=== PATIENT | male | born 1960 | race Caucasian/White ===

== ENCOUNTER 2018-08-27 02:38 | Observation (INO) ==
[2018-08-27] MEDS ORDERED: Tdap (Boostrix) Vaccine 0.5 ML SYRINGE IM ONE (03:05)
[2018-08-27] MEDS ORDERED: Lidocaine/EPI 1:100k 1% 30 ML VIAL INFILT ONE (03:05)
--- NOTE | 2018-08-27 03:09 | Emergency Department Note ---
Disposition Clinical Impression: Dog bite Qualifiers: Encounter type: initial encounter Qualified Code(s): W54.0XXA - Bitten by dog, initial encounter Disposition: Admitted As Inpatient Condition: Good Animal Bite HPI - General Chief Complaint: ED Animal Bite Stated Complaint: dog bite to face Time Seen by Provider: 08/27/18 02:40 Source: patient, EMS Mode of arrival: private vehicle Limitations: no limitations Nursing Notes Reviewed: Yes Vital Signs Reviewed: Yes - History of Present Illness HPI Narrative: 58-year-old male presents emergency department for evaluation of a dog bite. Patient states he owns a pit bull, the dog was laying beside him and he went to sit up THE DOG ATTACKED HIS FACE AND BITING HIM. HE HAS MULTIPLE BITES TO HIS FACE AND ONE BITE TO HIS LEG. PATIENT STATES HE IS UNSURE WHY THE DOG ATTACKED HIM THE DOG STOPPED ON ITS OWN WHEN HIS ENTERS ROOM. PATIENT DENIES VISUAL DISTURBANCE, PAIN. HE STATES HE CAME TO GET THE WOUNDS LOOKED AT. HE STATES HE HAS NOT SEEN A PROVIDER NEVER 40 YEARS AND HAS NEVER HAD A TETANUS SHOT. Patient says dog Vaccinations are up-to-date. Patient is a chronic long-term smoker of at least one pack per day. Pt Subjective Complaint: animal bite Onset (ago): hour(s) Animal: dog Description of Animal: household pet Mechanism: bite, scratch Context: unprovoked Associated symptoms: Reports: none - Related Data Patient Tetanus UTD: No Allergies Allergy/AdvReac Type Severity Reaction Status Date / Time No Known Allergies Allergy Verified 08/27/18 02:42 All systems ED: reviewed and negative except as stated. Review of Systems: As Per HPI Past Medical History - Past Medical History Attestation: Yes The following information was validated with the patient. Source: patient Medical history: Reports: no medical history Psychiatric history: Reports: no psych history - Social History Smoking Status: Current every day smoker Smokeless Tobacco Status: No Alcohol use: Reports: heavy, recent Drug use: Reports: marijuana Physical Exam - General Limitations: no limitations General appearance: alert, in no apparent distress - Expanded Head Exam Head exam physicial: Present: laceration, abrasion 1 - 2 cm well approximated shallow laceration, no active bleeding 2 - 4 cm abrasion, no active bleeding 3 - Laceration through the nare at the base, minimal bleeding 4 - Laceration through and through the nare, no active bleeding 5 - Laceration to her lip line, laceration is half the depth of the entire lip , no active bleeding, no foreign body. - Eye Eye exam: Present: normal appearance, PERRL, EOMI - ENT ENT exam: mucous membranes moist - Neck Neck exam: Present: normal inspection, full ROM, trachea midline - Expanded Lower Extremity Exam 1 - Small puncture wound, patient states was a dog bite. Course Course Narrative: Pleasant male in no acute distress. Patient noted with dried blood to know, mouth, above his eye. Patient denying visual disturbances. He is alert and oriented. Initially, patient did not want closure or evaluation of any of his wounds, I was able to speak to him and discuss closing wound on the nose and lip , patient states he did not want the wound to his eye mask with. He states he wants returning to be closed and is to go home. Medical student and the room was cleansing the wounds, after cleansing noticed that the tip of nose is mostly amputated, patel in color. Wound to lip is deeper than originally thought and considerably larger, through the vermilion border almost a through and through. Wound to left superior orbit with exposure to palpebrae muscle. Extensiveness of injuries requiring ENT consultation. We will start Ancef, ciprofloxacin Spoke with ENT doctor Jayson, we will need to close in the OR, plan for admission to the hospital under their services. Will admit to hospital at this time. Patient is agreeable plan of care. Vital signs are stable, afebrile. Safe for discharge. Orders for admission discussed with Dr. Tyler, we will implement. Vital Signs Temperature 98.2 F 08/27/18 02:42 Pulse Rate 94 08/27/18 02:42 Respiratory Rate 16 08/27/18 02:42 Blood Pressure 147/93 08/27/18 02:42 O2 Sat by Pulse Oximetry 96 08/27/18 02:42 Temperature 98.2 F 08/27/18 02:42 Pulse Rate 87 08/27/18 04:39 Respiratory Rate 16 08/27/18 04:39 Blood Pressure 120/79 08/27/18 04:39 O2 Sat by Pulse Oximetry 96 08/27/18 04:39 Oxygen Delivery Oxygen Delivery Room Air Attestation Statement - Attestation Attestation: I examined this patient and my medical decision-making was reviewed with the Resident Physician. I agree with the documented findings, disposition and treatment plan as described except to the extent set forth below. Dog bite to the face. There is significant irritation of the anterior nasal cartilage as well as through and through laceration of the per million border in the muscle of the lip as well as a linear laceration through the levator palpebra muscle of the left eyelid. Spoke with ENT facial plastic surgery and we will proceed with admission hospital for further management. Wet to dry dressings placed prior to operative intervention for primary closure.
[2018-08-27] MEDS ORDERED: Nicotine 21 MG PATCH.TD24 TD ONE (03:46)
[2018-08-27] MEDS ORDERED: ceFAZolin 1,000 MG in Water for inj. (sterile) 20 ML 10 ML IVPB ONE ×2 (04:05→05:00)
[2018-08-27] MEDS ORDERED: 0.9 % Sodium Chloride 1,000 ML IVC SCH ×2 (07:00→20:15)
[2018-08-27 07:15] LABS: Basophils # 0.1 K/mcL (0.0-0.2); Basophils % 1.4 %; Eosinophils # 0.1 K/mcL (0.0-0.6); Eosinophils % 2.4 %; Hematocrit 34.8 % (37.5-50.1); Hemoglobin 10.9 g/dL (12.9-16.9); Immature Granulocytes % 0.2 % (0-4); Lymphocytes % 24.9 %; Mean Corpuscular HGB Conc 31.3 g/dL (31.6-35.5); Mean Corpuscular Hemoglobin 28.8 pg (28.0-33.3); Mean Corpuscular Volume 91.8 fL (83.0-100.0); Mean Platelet Volume 9.3 fL (9.4-12.4); Monocytes # 0.6 K/mcL (0.0-1.3); Monocytes % 13.5 %; Neutrophils # 2.4 K/mcL (1.6-8.9); Platelet Count 188 K/mcL (140-400); Red Blood Count 3.79 M/mcL (4.19-5.50); Red Cell Distribution Width 15.9 % (11.5-14.5); Segmented Neutrophils % 57.6 %
[2018-08-27 07:26] LABS: INR 1.3; Prothrombin Time 14.4 Seconds (9.4-12.1)
[2018-08-27 07:37] LABS: BUN/Creatinine Ratio 14 (6-26); Blood Urea Nitrogen 6 mg/dL (8-23); Calcium 8.9 mg/dL (8.6-10.3); Carbon Dioxide 20 mEq/L (23-29); Chloride 107 mEq/L (98-107); Glucose 88 mg/dL (70-105); Osmolality,Calculated 277 (280-300); Potassium 3.7 mEq/L (3.5-5.1); Sodium 135 mEq/L (136-145); eGFR For Non-African Americans > 60 (> 60)
--- NOTE | 2018-08-27 09:01 | ENT - Consult Note ---
Date of Encounter: 08/27/18 Time of Encounter: 09:00 History of Present Illness Consult date: 08/27/18 Reason for ENT Consult: other (Multiple Facial lacerations after Dog Bite To face) Requesting physician: Jeffy Vidales Past Med Surg Social Fam HX - Past Medical History Medical history: no medical history Psychiatric history: no psych history - Social History Smoking Status: Current every day smoker Packs per day: 1 Smokeless Tobacco Status: No Alcohol use: heavy, recent Drug use: marijuana - Family History Father Adopted: No Age: 88 Living Status: Still Living Hx Family Cardiac Disorders: Yes (stents, [place]) Hx Family Respiratory Disorders: No Hx Family Cancer: No Hx Family GI Disorders: No Hx Family Genitourinary Disorders: No Hx Family Endocrine Disorder: No Hx Family Musculoskeletal Disorders: Yes (arthritis) Hx Family Neuromuscular Disorders: No Hx Family Neurologic Disorders: No Hx Family HEENT Disorders: No Hx Family Autoimmune Disorders: No Hx Family Reproductive Disorders: No Hx Family Psychosocial Disorders: No Hx Family Medical Disorders: No Mother Adopted: No Living Status: Age at : 62 Cause of : diabetic issues Hx Family Cardiac Disorders: No Hx Family Respiratory Disorders: No Hx Family Cancer: No Hx Family GI Disorders: No Hx Family Genitourinary Disorders: No Hx Family Endocrine Disorder: Yes Hx Family Musculoskeletal Disorders: No Hx Family Neuromuscular Disorders: No Hx Family Neurologic Disorders: No Hx Family HEENT Disorders: No Hx Family Autoimmune Disorders: No Hx Family Reproductive Disorders: No Hx Family Psychosocial Disorders: No Hx Family Medical Disorders: No Medications and Allergies 3 Allergy/AdvReac Type Severity Reaction Status Date / Time No Known Allergies Allergy Verified 08/27/18 02:42 ENT Exam Initial Vital Signs Temp Pulse Resp BP Pulse Ox 98.2 F 94 16 147/93 96 08/27/18 02:42 08/27/18 02:42 08/27/18 02:42 08/27/18 02:42 08/27/18 02:42 Exam Initial Vital Signs Temp Pulse Resp BP Pulse Ox 98.2 F 94 16 147/93 96 08/27/18 02:42 08/27/18 02:42 08/27/18 02:42 08/27/18 02:42 08/27/18 02:42 Results - Labs 08/27/18 06:59 08/27/18 07:04 Abnormal lab results WBC 4.1 K/mcL (4.3-11.1) L 08/27/18 06:59 RBC 3.79 M/mcL (4.19-5.50) L 08/27/18 06:59 Hgb 10.9 g/dL (12.9-16.9) L 08/27/18 06:59 Hct 34.8 % (37.5-50.1) L 08/27/18 06:59 MCHC 31.3 g/dL (31.6-35.5) L 08/27/18 06:59 RDW 15.9 % (11.5-14.5) H 08/27/18 06:59 MPV 9.3 fL (9.4-12.4) L 08/27/18 06:59 PT 14.4 Seconds (9.4-12.1) H 08/27/18 07:04 Sodium 135 mEq/L (136-145) L 08/27/18 07:04 Carbon Dioxide 20 mEq/L (23-29) L 08/27/18 07:04 BUN 6 mg/dL (8-23) L 08/27/18 07:04 Creatinine 0.43 mg/dL (0.70-1.30) L 08/27/18 07:04 Calculated Osmolality 277 (280-300) L 08/27/18 07:04 Diabetes panel 08/27/18 Range/Units 07:04 Sodium 135 L (136-145) mEq/L Potassium 3.7 (3.5-5.1) mEq/L Chloride 107 (98-107) mEq/L Carbon Dioxide 20 L (23-29) mEq/L BUN 6 L (8-23) mg/dL Creatinine 0.43 L (0.70-1.30) mg/dL Glucose 88 (70-105) mg/dL Calcium 8.9 (8.6-10.3) mg/dL Calcium panel 08/27/18 Range/Units 07:04 Calcium 8.9 (8.6-10.3) mg/dL Pituitary panel 08/27/18 Range/Units 07:04 Sodium 135 L (136-145) mEq/L Potassium 3.7 (3.5-5.1) mEq/L Chloride 107 (98-107) mEq/L Carbon Dioxide 20 L (23-29) mEq/L BUN 6 L (8-23) mg/dL Creatinine 0.43 L (0.70-1.30) mg/dL Glucose 88 (70-105) mg/dL Calcium 8.9 (8.6-10.3) mg/dL Adrenal panel 08/27/18 Range/Units 07:04 Sodium 135 L (136-145) mEq/L Potassium 3.7 (3.5-5.1) mEq/L Chloride 107 (98-107) mEq/L Carbon Dioxide 20 L (23-29) mEq/L BUN 6 L (8-23) mg/dL Creatinine 0.43 L (0.70-1.30) mg/dL Glucose 88 (70-105) mg/dL Calcium 8.9 (8.6-10.3) mg/dL All other labs normal. Consult Discharge Plan - Plan Referrals: NONE,PCP [Primary Care Provider] -
--- NOTE | 2018-08-27 09:25 | ENT - History & Physical ---
Date of Encounter: 08/28/18 Time of Encounter: 09:24 Assessment and Plan (1) Laceration of upper lip with complication Current Visit: Yes Status: Acute --Patient received a tetanus booster in the emergency department --Pain control after sustaining trauma from the dog bite --We will place on IV antibiotics prior to and after surgical intervention. --Preoperative labs were obtained, this included CBC BMP and coagulations studies. --Patient is to be nothing by mouth prior to surgery --We will begin patient on IV fluids --I discussed with the patient that we will close each laceration individually. I discussed with the patient that the laceration on his nose may have resultant defect due to skin necrosis that may be corrected at a later date. Stress other major risks and complications with the patient and his family member and ring consent was obtained. The assessment and plan as outlined above was discussed with the patient and/or family members who expressed understanding and agreement. All questions were answered. Qualifiers: Encounter type: initial encounter Qualified Code(s): S01.511A - Laceration without foreign body of lip, initial encounter (2) Eyelid laceration, left Current Visit: Yes Status: Acute As noted above Qualifiers: Encounter type: initial encounter Qualified Code(s): S01.112A - Laceration without foreign body of left eyelid and periocular area, initial encounter (3) Nasal laceration Current Visit: Yes Status: Acute As noted above Qualifiers: Encounter type: initial encounter Qualified Code(s): S01.21XA - Laceration without foreign body of nose, initial encounter (4) Dog bite Current Visit: Yes Status: Acute As noted above in plan for others. The assessment and plan as outlined above was discussed with the patient and/or family members who expressed understanding and agreement. All questions were answered. Qualifiers: Encounter type: initial encounter Qualified Code(s): W54.0XXA - Bitten by dog, initial encounter History of Present Illness Chief complaint: Dog Bite HPI: Mr. Sandra is a 58 year old male who presented to the emergency department after being attacked by his dog of 11 years. The patient states that his dogs immunizations are up to date including rabies. The patient has not had a tetanus shot. He was given tetanus shot in the emergency department. The patient states that the bleeding has subsided. The patient is complaining of some nasal congestion as well as pain. The patient has no change in his vision. The patient has no the paresthesias of the face. Past Med Surg Social Fam HX - Past Medical History Attestation: Yes The following information was validated with the patient. Source: patient Medical history: no medical history Psychiatric history: no psych history - Past Surgical History Surgical History: no surgical history - Social History Smoking Status: Current every day smoker Packs per day: 1 Smokeless Tobacco Status: No Alcohol use: heavy, recent Drug use: marijuana - Family History Father Adopted: No Age: 88 Living Status: Still Living Hx Family Cardiac Disorders: Yes (stents, [place]) Hx Family Respiratory Disorders: No Hx Family Cancer: No Hx Family GI Disorders: No Hx Family Genitourinary Disorders: No Hx Family Endocrine Disorder: No Hx Family Musculoskeletal Disorders: Yes (arthritis) Hx Family Neuromuscular Disorders: No Hx Family Neurologic Disorders: No Hx Family HEENT Disorders: No Hx Family Autoimmune Disorders: No Hx Family Reproductive Disorders: No Hx Family Psychosocial Disorders: No Hx Family Medical Disorders: No Mother Adopted: No Living Status: Age at : 62 Cause of : diabetic issues Hx Family Cardiac Disorders: No Hx Family Respiratory Disorders: No Hx Family Cancer: No Hx Family GI Disorders: No Hx Family Genitourinary Disorders: No Hx Family Endocrine Disorder: Yes Hx Family Musculoskeletal Disorders: No Hx Family Neuromuscular Disorders: No Hx Family Neurologic Disorders: No Hx Family HEENT Disorders: No Hx Family Autoimmune Disorders: No Hx Family Reproductive Disorders: No Hx Family Psychosocial Disorders: No Hx Family Medical Disorders: No Medications and Allergies Amoxicillin/Clavulanate [Augmentin] 875 mg PO BID 10 Days #20 tablet 08/28/18 [ Rx] Mupirocin [Bactroban Oint] 1 appl TP BID 10 Days #1 tube 08/28/18 [Rx] 3 Allergy/AdvReac Type Severity Reaction Status Date / Time No Known Allergies Allergy Verified 08/27/18 02:42 ENT - ROS - Constitutional Constitutional ROS: no daytime sleepiness, no fever(s), no headache(s), no lethargy, no snoring, no stops breathing during sleep - EENT Nose, mouth and throat: mouth lesions (Laceration of upper lip), no abnormal hearing, no bleeding gums, no change in voice, no dental pain, no disequilibrium , no dizziness, no dry mouth, no dysphagia, no epistaxis, no facial pain, no halitosis, no headache(s), no hoarseness, no lip swelling, no mouth pain, no nasal congestion, no nasal discharge, no nasal obstruction, no nasal trauma, no neck mass, no neck pain, no nose pain, no odynophagia, no post-nasal drip, no sinus pain, no sinus pressure, no sore throat, no throat swelling, no tongue swelling, no vertigo - Cardiovascular Cardiovascular ROS IM: no chest pain, no chest pain at rest, no chest pain with activity, no dyspnea, no edema, no irregular heart rhythm, no radiating jaw, neck or arm pain, no lightheadedness, no orthopnea, no paroxysmal nocturnal dyspnea, no syncope - Respiratory no cough, no dyspnea, no hemoptysis, no dyspnea on exertion, no wheezing, no snoring, no stridor, no pain on inspiration, no chest congestion, no excessive phlegm production, no change in phlegm color, no pain with cough - Gastrointestinal Gastrointestinal: no coffee ground emesis, no constipation, no diarrhea, no dyspepsia, no dysphagia, no heartburn, no nausea, no odynophagia, no vomiting - Genitourinary Genitourinary ROS: no difficulty urinating, no dysuria, no urinary frequency, no urinary incontinence, no urinary urgency - Musculoskeletal Musculoskeletal ROS: no abnormal gait, no muscle weakness, no myalgias, no neck pain, no numbness, no stiffness, no tingling - Integumentary Integumentary: no acne, no bleeding lesions, no change in hair, no change in nails, no change in pigmentation, no changing lesions, no erythema, no furuncle , no lesions, no new lesions, no non-healing lesions, no pruritus, no rash, no skin ulcer, no sores - Neurological Neurological ROS: no abnormal gait, no abnormal hearing, no abnormal speech, no disequilibrium, no dizziness, no focal weakness, no frequent falls, no headache( s), no lack of coordination, no numbness, no paresthesias, no restless legs, no syncope, no tingling, no tremor(s), no vertigo, no weakness - Psychiatric Psychiatric general: no abnormal sleep pattern, no anxiety, no auditory hallucinations - Endocrine Endocrine: no cold intolerance, no deeping of the voice, no excessive sweating, no fatigue, no flushing, no heat intolerance, no palpitations, no polydipsia, no polyphagia, no polyuria - Hematologic/Lymphatic no easy bleeding, no easy bruising, no lymphadenopathy - Allergic/Immunologic no tongue swelling, no throat swelling, no itchy eyes, no seasonal rhinorrhea, no uticaria, no wheezing, no GI upset with certain foods, no lip swelling ENT Exam Initial Vital Signs Temp Pulse Resp BP Pulse Ox 98.2 F 94 16 147/93 96 08/27/18 02:42 08/27/18 02:42 08/27/18 02:42 08/27/18 02:42 08/27/18 02:42 - General physical appearance well developed, well nourished, no distress, moderate pain - Eyes Eyes: left Eye exam: lesions (Upper eyelid laceration noted approximately 4 cm long. Discussed down to the level of the orbicularis and oculi) - ENT Other (There is a left upper lip laceration that is approximately 2 cm in length and involves the skin, subcutaneous tissue, musculature of the lip, and the oral mucosa is intact. There is also a complex laceration of the left nasal alar and the nasal tip. It appears that the ala is partially avulsed. It does not appear that the patient has any mucosal lacerations within the nasal cavity.) - Neck no masses, no bruits, trachea midline, no lymphadectomy, no venous distension - Respiratory normal expansion, normal respiratory effort, clear to percussion - Abdomen Abdomen: soft, non tender - Integumentary no abnormal pigmentation - Neurologic CN 2-12 grossly intact - Musculoskeletal normal gait, normal posture - Psychiatric oriented to time, oriented to person, oriented to place, speech is normal, memory intact Results - Labs 08/27/18 06:59 08/27/18 07:04 Abnormal lab results WBC 4.1 K/mcL (4.3-11.1) L 08/27/18 06:59 RBC 3.79 M/mcL (4.19-5.50) L 08/27/18 06:59 Hgb 10.9 g/dL (12.9-16.9) L 08/27/18 06:59 Hct 34.8 % (37.5-50.1) L 08/27/18 06:59 MCHC 31.3 g/dL (31.6-35.5) L 08/27/18 06:59 RDW 15.9 % (11.5-14.5) H 08/27/18 06:59 MPV 9.3 fL (9.4-12.4) L 08/27/18 06:59 PT 14.4 Seconds (9.4-12.1) H 08/27/18 07:04 Sodium 135 mEq/L (136-145) L 08/27/18 07:04 Carbon Dioxide 20 mEq/L (23-29) L 08/27/18 07:04 BUN 6 mg/dL (8-23) L 08/27/18 07:04 Creatinine 0.43 mg/dL (0.70-1.30) L 08/27/18 07:04 Calculated Osmolality 277 (280-300) L 08/27/18 07:04 Diabetes panel 08/27/18 Range/Units 07:04 Sodium 135 L (136-145) mEq/L Potassium 3.7 (3.5-5.1) mEq/L Chloride 107 (98-107) mEq/L Carbon Dioxide 20 L (23-29) mEq/L BUN 6 L (8-23) mg/dL Creatinine 0.43 L (0.70-1.30) mg/dL Glucose 88 (70-105) mg/dL Calcium 8.9 (8.6-10.3) mg/dL Calcium panel 08/27/18 Range/Units 07:04 Calcium 8.9 (8.6-10.3) mg/dL Pituitary panel 08/27/18 Range/Units 07:04 Sodium 135 L (136-145) mEq/L Potassium 3.7 (3.5-5.1) mEq/L Chloride 107 (98-107) mEq/L Carbon Dioxide 20 L (23-29) mEq/L BUN 6 L (8-23) mg/dL Creatinine 0.43 L (0.70-1.30) mg/dL Glucose 88 (70-105) mg/dL Calcium 8.9 (8.6-10.3) mg/dL Adrenal panel 08/27/18 Range/Units 07:04 Sodium 135 L (136-145) mEq/L Potassium 3.7 (3.5-5.1) mEq/L Chloride 107 (98-107) mEq/L Carbon Dioxide 20 L (23-29) mEq/L BUN 6 L (8-23) mg/dL Creatinine 0.43 L (0.70-1.30) mg/dL Glucose 88 (70-105) mg/dL Calcium 8.9 (8.6-10.3) mg/dL All other labs normal. - VTE Reasons for not Prescribing Prophylaxis: Treatment not Indicated - Low risk for VTE Documentation of Mechanical Device: Intermittent pneumatic compression device Deep Vein Thrombosis/Pulmonary Embolism Present on Admission: No
[2018-08-27] MEDS ORDERED: *HR* HYDROcodone/Acet 5/325 mg TABLET PO PRN (10:52)
[2018-08-27] MEDS ORDERED: Ondansetron 4 MG/2 ML VIAL ONE (14:26)
[2018-08-27] MEDS ORDERED: Dexamethasone 4 MG/ML VIAL ONE (14:26)
[2018-08-27] MEDS ORDERED: Lidocaine -MPF 4% 5 ML AMPUL ONE (14:26)
[2018-08-27] MEDS ORDERED: *HR* Propofol 200 MG/20 ML VIAL IVP ONE (14:26)
[2018-08-27] MEDS ORDERED: *HR* Succinylcholine 200 MG/10 ML VIAL IVP ONE (14:26)
[2018-08-27] MEDS ORDERED: *HR* Midazolam HCl 2 MG/2 ML VIAL ONE (14:26)
[2018-08-27] MEDS ORDERED: *HR* FentaNYL (PF) 100 MCG/2 ML VIAL ONE (14:26)
[2018-08-27] MEDS ORDERED: Lidocaine -MPF 2% 2 ML VIAL ONE (14:26)
--- NOTE | 2018-08-27 14:39 | Anesthesia Evaluation PreOp ---
Date of Encounter: 08/27/18 Time of Encounter: 14:37 - Past History Planned Operation: Closure eyelid, nasal, and lip laceration Cardiac History: Denies any Significant Hx Pulmonary History: Smoker DIRECTOR [employer] SERVICES History: Denies Any Significant HX Other Medical History: Denies Any Significant HX Anesthesia History: No Prior Anesthetic Complications, Past Anesthesia (none) Alcohol Use: none, heavy, recent Drug use: none, marijuana Medications and Allergies No Known Home Drugs 08/27/18 [History] 3 Allergy/AdvReac Type Severity Reaction Status Date / Time No Known Allergies Allergy Verified 08/27/18 02:42 - Meds/Allergy Pre-op Review Medications Reviewed: Yes Allergies Reviewed: No Beta Blockers on Current Med List: No Anesthesia Results - Labs 08/27/18 06:59 08/27/18 07:04 Anesthesia Exam O2 Sat Height 1.83 m Height 1.83 m Weight 90.322 kg Weight 90.718 kg O2 Sat by Pulse Oximetry 95 O2 Sat by Pulse Oximetry 94 O2 Sat by Pulse Oximetry 96 O2 Sat by Pulse Oximetry 94 O2 Sat by Pulse Oximetry 96 Vital Signs Temp Pulse Resp BP Pulse Ox 98.2 F 94 16 147/93 96 08/27/18 02:42 08/27/18 02:42 08/27/18 02:42 08/27/18 02:42 08/27/18 02:42 NPO (# of Hours): > 8 hrs Pain Scale: 0 Pain Scale Used: Numeric (1 - 10) - HEENT Pupil (Motor): Pupils equal, EOMI Mallampati: II Teeth: Normal Oral Opening: Greater than 3 - [employer]OR OF [employer] SERVICES LOC: Oriented [employer] SERVICES Motor: Normal RUE, Normal LUE, Normal RLE, Normal LLE, Normal Face [employer] SERVICES Sensory: Normal: RUE, LUE, RLE, LLE, Face - Cardiac Rhythm: Regular Murmur: None JVD: No Carotid Bruit: No - Pulmonary Breath Sounds: bilateral Clear Respiratory Effort: Symmetrical Anesthesia Assess/Plan ASA Score: 3 Modified Hima Scale for Level of Consciousness: Cooperative, oriented, and tranquil Anesthetic Plan: General Autologous Blood: Yes Monitoring Plan: Standard Monitors Recovery Plan: PACU
[2018-08-27] MEDS ORDERED: Lidocaine/EPI 1:100k 1% 50 ML VIAL ONE (15:15)
[2018-08-27] MEDS ORDERED: Albuterol 2.5 MG/3 ML NEBULIZER IH ONE (15:26)
[2018-08-27] MEDS ORDERED: ceFAZolin 2,000 MG in Water for inj. (sterile) 20 ML 10 ML IVP ONE (16:40)
[2018-08-27] MEDS ORDERED: Albuterol 2.5 MG/3 ML NEBULIZER IH PRN (16:55)
[2018-08-27] MEDS ORDERED: *HR* Morphine 2 MG/ML SYRINGE IVP PRN (16:55)
[2018-08-27] MEDS ORDERED: *HR* OxyCODONE Immed Rel 5 MG TABLET PO PRN (16:55)
[2018-08-27] MEDS ORDERED: *HR* Promethazine 25 MG/ML VIAL IVP PRN (16:55)
--- NOTE | 2018-08-27 18:26 | Anesthesia Evaluation Post Op ---
Date of Encounter: 08/27/18 Time of Encounter: 18:25 - Vital Signs Vital Signs: Vital Signs/O2 Sat, Most Current Temp Pulse Resp BP Pulse Ox 97.1 F L 83 16 167/99 96 08/27/18 18:17 08/27/18 18:17 08/27/18 18:17 08/27/18 18:17 08/27/18 18:17 - Lungs Lungs: Clear Ascult./Percussion - Airway Airway: Non-obstructed - Cardiovascular Regular Rate - Mental Status Mental Status: Alert & Oriented, Answers Appropriately - Pain Pain Scale: 0 Pain Scale used: Numeric (1 - 10) - Nausea Vomiting Nausea Vomiting: Not Present - Hydration Hydration: Ice chips, Has not voided - Discharge PostOp Status: Transfer Patient to floor
--- NOTE | 2018-08-27 19:09 | Operative Note ---
Date of procedure: 08/27/18 Pre-op diagnosis: Left eyelid laceration, left nasal laceration, left upper lip laceration Post-op diagnosis: same Procedure: 1. Simple closure of the left upper eyelid laceration 2. Multiple layer closure of the left upper lip laceration 3. Multiple layer closure of the nasal laceration Complications: None apparent Anesthesia: GETA Surgeon: Gumaro Barrientos Was there an assistant to the ceo present: No Estimated blood loss (cc): 10 IV fluids (cc): 400 Urine output (cc): 0 Specimen: none Condition: stable Disposition: observation Procedure in Detail: After the risks benefits and complications were discussed with the patient ring consent was obtained. Once her consent was obtained the patient was transported to the operating suite and laid supine on the operating table. The patient underwent general endotracheal anesthesia by the Department of anesthesia. Once the patient was an adequate plane of anesthesia a proper timeout was held verifying patient name procedure to be performed and the patient date of and allergies. Following this the patient was prepped and draped in a standard fashion for this type of procedure. Next the wounds were inspected and the area of necrotic tissue on the nasal tip was divided with a Metzenbaum scissor. Following this the nasal vault was evaluated and there was no apparent intranasal mucosal laceration present. Each wound individually was copiously irrigated with sterile saline. First the eyelid laceration was addressed and was closed using a running 6-0 Prolene suture. The length of the laceration was approximately 4 cm. Following this the lip was reapproximated with a 5-0 Prolene at the vermilion border to ensure that the vermilion border would be in continuity and thus minimizing any cosmetic deformity. The muscular layer of the lip was closed with interrupted 3-0 Vicryl sutures and following this a 4-0 Vicryl sutures were used to close the subcutaneous and dermal tissues. After this the and was reapproximated using simple interrupted 5-0 Prolene. The nasal tip and a low were then addressed and the cartilage was reapproximated on the alar rim using 4-0 PDS suture. The subcutaneous tissue was reapproximated using 5-0 Vicryl suture and 5-0 Prolene suture was then used to close the skin edges. The Vicryl and Prolene sutures were placed in a simple interrupted fashion. Mupirocin ointment was placed over each incision and a dressing was then placed. At this time the surgery was considered complete and the patient was terminated the care of anesthesia and was transported to PACU in good/stable condition the patient will be held in the hospital overnight for IV antibiotics.
[2018-08-27] MEDS ORDERED: Ondansetron 4 MG/2 ML VIAL IVP PRN (20:03)
[2018-08-27] MEDS: ceFAZolin 1,000 MG in Water for inj. (sterile) 20 ML 10 ML IVP SCH (20:54)
[2018-08-27] MEDS: *HR* HYDROcodone/Acet 5/325 mg TABLET PO PRN (21:04)
[2018-08-28] MEDS ORDERED: ceFAZolin 1,000 MG in Water for inj. (sterile) 20 ML 10 ML IVP SCH
[2018-08-28] MEDS: ceFAZolin 1,000 MG in Water for inj. (sterile) 20 ML 10 ML IVP SCH (04:31)
[2018-08-28] MEDS: *HR* HYDROcodone/Acet 5/325 mg TABLET PO PRN (08:17)
--- NOTE | 2018-08-28 08:46 | Discharge Summary ---
Date of Encounter: 08/28/18 Time of Encounter: 07:45 - Discharge Diagnosis (1) Face lacerations Priority: Primary Status: Acute Comments: Patient is status post repair of left upper eyelid laceration, left upper lip laceration, and nasal laceration performed by Dr. Barrientos ENT physician yesterday 08/27/18. Patient seen and examined this A.M. Incision sites with no issues noted. Patient reports pain well controlled with medication. Patient is eating and drinking appropriately, voiding and ambulating appropriately. Vital signs within normal limits. Wound care and discharge instructions reviewed in detail with patient. Prescriptions sent for oral augmentin antibiotic and mupirocin ointment. Patient to follow up in ENT office in 10 days for wound assessment and suture removal. All questions answered. Qualifiers: Encounter type: sequela Qualified Code(s): S01.81XS - Laceration without foreign body of other part of head, sequela (2) Dog bite Priority: Secondary Status: Acute Comments: Patient to complete course of oral Augmentin 875 twice a day for 10 days and to apply mupirocin ointment to facial incision repair sites twice a day for 10 days. Qualifiers: Encounter type: initial encounter Qualified Code(s): W54.0XXA - Bitten by dog, initial encounter - Hospital Course Hospital course: Mr. Sandra is a 58 year old male admitted for observation status post Simple closure of the left upper eyelid laceration, Multiple layer closure of the left upper lip laceration, and Multiple layer closure of the nasal laceration performed by Dr. Barrientos ENT physician on 08/27/18. This was following an episode of a dog bite to the face patient sustained on 08/27/18. - Time Spent with Patient Total time spent providing and/or coordinating discharge services: Less than 30 minutes Date of admission: 08/27/18 03:48 Primary care physician: PCP NONE Discharging clinician: Elsie Walter date of discharge: 08/28/18 - Discharge Medications Prescriptions: Amoxicillin/Clavulanate [Augmentin] 875 mg PO BID 10 Days #20 tablet Mupirocin [Bactroban Oint] 1 appl TP BID 10 Days #1 tube Home Medications: Amoxicillin/Clavulanate [Augmentin] 875 mg PO BID 10 Days #20 tablet 08/28/18 [ Rx] Mupirocin [Bactroban Oint] 1 appl TP BID 10 Days #1 tube 08/28/18 [Rx] Allergies/Adverse Reactions: 3 Allergy/AdvReac Type Severity Reaction Status Date / Time No Known Allergies Allergy Verified 08/27/18 02:42 ENT Exam Initial Vital Signs Temp Pulse Resp BP Pulse Ox 98.2 F 94 16 147/93 96 08/27/18 02:42 08/27/18 02:42 08/27/18 02:42 08/27/18 02:42 08/27/18 02:42 - General physical appearance well developed, well nourished, no distress - Eyes PERRL, normal ocular movement - ENT CN 2-12 grossly intact, Other (Incision sites are well approximated with no signs or symptoms of developing infection.) - Neck trachea midline - Respiratory normal expansion, normal respiratory effort - Psychiatric oriented to time, oriented to person, oriented to place Labs on day of discharge: Labs from last 24 hours 08/27/18 08/27/18 08/27/18 20:44 11:39 08:15 POC Glucose 165 H 103 H 98 - Patient Status Disposition: Home, Self-Care Condition: Good Functional capacity at discharge: independent ambulation Overall status at discharge: patient is progressing back to baseline - Discharge Instructions Follow Up With: NONE,PCP [Primary Care Provider] - Additional Instructions: Keep the wound clean. Cleanse the wound with hydrogen peroxide twice daily. Apply mupirocin antibiotic ointment liberally to incision sites twice daily. Follow-up in ENT office in 10 days for wound assessment and suture removal. If signs or symptoms of infection occur including: redness, severe pain, drainage, swelling or warmth at incision sites, please contact ENT office immediately at [phone]. - Diet and Activity Activity: increase activity as tolerated Diet: advance to your usual diet - VTE Reasons for not Prescribing Prophylaxis: Treatment not Indicated - Low risk for VTE Documentation of Mechanical Device: Intermittent pneumatic compression device Deep Vein Thrombosis/Pulmonary Embolism Present on Admission: No
[2018-08-28] MEDS ORDERED: Nicotine 21 MG PATCH.TD24 TD SCH (09:00)
[2018-08-28 09:55] VITALS: BP 157/85
== END 2018-08-28 10:35 | disposition home or self-care (01) ==
LOC: EMEROOARM 02:38 → 3ANU 02:38
PROVIDERS: ADMIT Otolaryngology; ATTEND Otolaryngology

== ENCOUNTER 2019-10-15 08:20 | Inpatient (IN) ==
[2019-10-15] MEDS ORDERED: Piperacillin/Tazobactam 3.375 GM in Water for inj. (sterile) 20 ML IVP ONE (08:36)
[2019-10-15 08:51] LABS: Basophils # 0.1 K/mcL (0.0-0.2); Basophils % 1.8 %; Eosinophils # 0.1 K/mcL (0.0-0.6); Eosinophils % 2.3 %; Hematocrit 34.6 % (37.5-50.1); Hemoglobin 11.2 g/dL (12.9-16.9); Immature Granulocytes % 0.5 % (0-4); Lymphocytes # 0.8 K/mcL (0.6-4.6); Lymphocytes % 18.6 %; Mean Corpuscular HGB Conc 32.4 g/dL (31.6-35.5); Mean Corpuscular Hemoglobin 30.9 pg (28.0-33.3); Mean Corpuscular Volume 95.6 fL (83.0-100.0); Mean Platelet Volume 9.1 fL (9.4-12.4); Monocytes # 0.6 K/mcL (0.0-1.3); Neutrophils # 2.8 K/mcL (1.6-8.9); Platelet Count 239 K/mcL (140-400); Red Blood Count 3.62 M/mcL (4.19-5.50); Red Cell Distribution Width 16.3 % (11.5-14.5); Segmented Neutrophils % 63.8 %; White Blood Count 4.4 K/mcL (4.3-11.1)
[2019-10-15 09:10] LABS: BUN/Creatinine Ratio 19 (6-26); Blood Urea Nitrogen 12 mg/dL (8-23); Calcium 8.9 mg/dL (8.6-10.3); Carbon Dioxide 25 mEq/L (23-29); Chloride 104 mEq/L (98-107); Glucose 98 mg/dL (70-105); Osmolality,Calculated 280 (280-300); Potassium 3.6 mEq/L (3.5-5.1); Sodium 135 mEq/L (136-145); eGFR For African Americans > 60 (> 60); eGFR For Non-African Americans > 60 (> 60)
[2019-10-15] MEDS ORDERED: Naloxone 0.4 MG/ML INJ IVP PRN (09:30)
[2019-10-15] MEDS ORDERED: Ondansetron 4 MG/2 ML VIAL IVP PRN (09:30)
[2019-10-15] MEDS ORDERED: MOM Conc 10 ML UD.LIQ PO PRN (09:30)
[2019-10-15] MEDS: 0.9 % Sodium Chloride 1,000 ML IVC SCH (10:52)
[2019-10-15] MEDS: *HR* Heparin 5,000 UNIT/ML VIAL SQ SCH ×2 (14:21→21:53)
[2019-10-15] MEDS: Piperacillin/Tazobactam 3.375 GM in 0.9 % Sodium Chloride Mini Bag 100 ML IVPB SCH (16:53)
[2019-10-15] MEDS: Nicotine 14 MG PATCH.TD24 TD SCH (21:53)
[2019-10-16] MEDS: Piperacillin/Tazobactam 3.375 GM in 0.9 % Sodium Chloride Mini Bag 100 ML IVPB SCH ×4 (00:05→23:56)
[2019-10-16 04:34] LABS: Eosinophils # 0.1 K/mcL (0.0-0.6); Eosinophils % 2.3 %; Hemoglobin 10.2 g/dL (12.9-16.9); Immature Granulocytes % 0.3 % (0-4); Lymphocytes # 0.7 K/mcL (0.6-4.6); Mean Corpuscular HGB Conc 31.9 g/dL (31.6-35.5); Mean Corpuscular Hemoglobin 31.5 pg (28.0-33.3); Mean Corpuscular Volume 98.8 fL (83.0-100.0); Mean Platelet Volume 9.3 fL (9.4-12.4); Monocytes # 0.5 K/mcL (0.0-1.3); Monocytes % 12.7 %; Neutrophils # 2.6 K/mcL (1.6-8.9); Platelet Count 204 K/mcL (140-400); Red Blood Count 3.24 M/mcL (4.19-5.50); Red Cell Distribution Width 16.2 % (11.5-14.5); Segmented Neutrophils % 66.7 %; White Blood Count 3.9 K/mcL (4.3-11.1)
[2019-10-16 04:59] LABS: BUN/Creatinine Ratio 17 (6-26); Blood Urea Nitrogen 12 mg/dL (8-23); Calcium 8.4 mg/dL (8.6-10.3); Carbon Dioxide 24 mEq/L (23-29); Chloride 107 mEq/L (98-107); Glucose 87 mg/dL (70-105); Osmolality,Calculated 279 (280-300); Potassium 3.8 mEq/L (3.5-5.1); Sodium 135 mEq/L (136-145); eGFR For African Americans > 60 (> 60); eGFR For Non-African Americans > 60 (> 60)
[2019-10-16] MEDS: *HR* Heparin 5,000 UNIT/ML VIAL SQ SCH ×3 (07:10→21:16)
[2019-10-16] MEDS: 0.9 % Sodium Chloride 1,000 ML IVC SCH (09:24)
[2019-10-16] MEDS: Nicotine 14 MG PATCH.TD24 TD SCH ×2 (09:25→18:24)
[2019-10-16] MEDS ORDERED: Bupivacaine-MPF 0.25% 10 ML VIAL ONE (14:15)
[2019-10-16] MEDS ORDERED: Vancomycin 1,000 MG VIAL ONE (14:15)
[2019-10-16] MEDS ORDERED: *HR* FentaNYL (PF) 100 MCG/2 ML VIAL ONE (14:20)
[2019-10-16] MEDS ORDERED: *HR* Propofol 200 MG/20 ML VIAL IVP ONE (14:20)
[2019-10-16] MEDS ORDERED: Bupivacaine/EPI 1:200k 0.5%PF 10 ML VIAL ONE (15:10)
[2019-10-16] MEDS ORDERED: Bupivacaine/EPI 1:200k 0.25%PF 10 ML VIAL INFILT ONE (15:10)
[2019-10-16] MEDS ORDERED: Vancomycin 1,000 MG, Sodium Chloride IRRigation 1,000 ML IR ONE ×2 (15:20→16:30)
[2019-10-16] MEDS ORDERED: *HR* Promethazine 25 MG/ML VIAL IVP PRN (15:27)
[2019-10-16] MEDS ORDERED: Ondansetron 4 MG/2 ML VIAL IVP ONE (15:27)
[2019-10-16] MEDS ORDERED: *HR* HYDROmorphone (PF) 1 MG/ML SYRINGE IVP PRN (15:27)
[2019-10-16] MEDS ORDERED: *HR* OxyCODONE Immed Rel 5 MG TABLET PO PRN (15:27)
[2019-10-16] MEDS ORDERED: Ondansetron 4 MG/2 ML VIAL IVP PRN (16:30)
[2019-10-16] MEDS ORDERED: 0.9 % Sodium Chloride 1,000 ML IVC SCH (16:30)
[2019-10-16] MEDS ORDERED: MOM Conc 10 ML UD.LIQ PO PRN (16:30)
[2019-10-16] MEDS ORDERED: Naloxone 0.4 MG/ML INJ IVP PRN (16:30)
[2019-10-17] MEDS: *HR* Heparin 5,000 UNIT/ML VIAL SQ SCH ×3 (05:25→21:44)
[2019-10-17 08:13] LABS: Hematocrit 30.6 % (37.5-50.1); Hemoglobin 9.6 g/dL (12.9-16.9); Mean Corpuscular HGB Conc 31.4 g/dL (31.6-35.5); Mean Corpuscular Hemoglobin 30.9 pg (28.0-33.3); Mean Corpuscular Volume 98.4 fL (83.0-100.0); Mean Platelet Volume 9.5 fL (9.4-12.4); Platelet Count 203 K/mcL (140-400); Red Blood Count 3.11 M/mcL (4.19-5.50); Red Cell Distribution Width 15.9 % (11.5-14.5); White Blood Count 5.3 K/mcL (4.3-11.1)
[2019-10-17 08:25] LABS: BUN/Creatinine Ratio 18 (6-26); Blood Urea Nitrogen 12 mg/dL (8-23); Calcium 8.4 mg/dL (8.6-10.3); Carbon Dioxide 22 mEq/L (23-29); Chloride 105 mEq/L (98-107); Glucose 96 mg/dL (70-105); Osmolality,Calculated 274 (280-300); Potassium 3.8 mEq/L (3.5-5.1); Sodium 132 mEq/L (136-145); eGFR For African Americans > 60 (> 60); eGFR For Non-African Americans > 60 (> 60)
[2019-10-17] MEDS: Piperacillin/Tazobactam 3.375 GM in 0.9 % Sodium Chloride Mini Bag 100 ML IVPB SCH ×3 (08:47→23:35)
[2019-10-17] MEDS: Nicotine 14 MG PATCH.TD24 TD SCH (08:48)
[2019-10-17] MEDS ORDERED: Nicotine 14 MG PATCH.TD24 TD SCH (09:00)
[2019-10-18] MEDS: *HR* Heparin 5,000 UNIT/ML VIAL SQ SCH ×2 (05:34→14:35)
[2019-10-18 05:39] LABS: Hematocrit 30.3 % (37.5-50.1); Hemoglobin 9.6 g/dL (12.9-16.9); Mean Corpuscular HGB Conc 31.7 g/dL (31.6-35.5); Mean Corpuscular Hemoglobin 30.8 pg (28.0-33.3); Mean Corpuscular Volume 97.1 fL (83.0-100.0); Mean Platelet Volume 9.9 fL (9.4-12.4); Platelet Count 216 K/mcL (140-400); Red Blood Count 3.12 M/mcL (4.19-5.50); Red Cell Distribution Width 15.9 % (11.5-14.5); White Blood Count 4.2 K/mcL (4.3-11.1)
[2019-10-18 06:07] LABS: BUN/Creatinine Ratio 17 (6-26); Blood Urea Nitrogen 13 mg/dL (8-23); Calcium 8.3 mg/dL (8.6-10.3); Carbon Dioxide 20 mEq/L (23-29); Chloride 107 mEq/L (98-107); Glucose 92 mg/dL (70-105); Osmolality,Calculated 280 (280-300); Potassium 3.5 mEq/L (3.5-5.1); Sodium 135 mEq/L (136-145); eGFR For African Americans > 60 (> 60); eGFR For Non-African Americans > 60 (> 60)
[2019-10-18] MEDS: Piperacillin/Tazobactam 3.375 GM in 0.9 % Sodium Chloride Mini Bag 100 ML IVPB SCH ×2 (08:30→15:37)
[2019-10-18] MEDS: Nicotine 14 MG PATCH.TD24 TD SCH (08:31)
[2019-10-18] MEDS: Acetaminophen 325 MG TABLET PO PRN (15:37)
[2019-10-19] MEDS: *HR* Heparin 5,000 UNIT/ML VIAL SQ SCH ×4 (00:36→21:38)
[2019-10-19] MEDS: Piperacillin/Tazobactam 3.375 GM in 0.9 % Sodium Chloride Mini Bag 100 ML IVPB SCH ×2 (00:36→09:22)
[2019-10-19 02:16] LABS: Hemoglobin 9.9 g/dL (12.9-16.9); Mean Corpuscular Hemoglobin 31.6 pg (28.0-33.3); Mean Corpuscular Volume 95.8 fL (83.0-100.0); Mean Platelet Volume 9.6 fL (9.4-12.4); Platelet Count 214 K/mcL (140-400); Red Blood Count 3.13 M/mcL (4.19-5.50); Red Cell Distribution Width 15.8 % (11.5-14.5); White Blood Count 4.1 K/mcL (4.3-11.1)
[2019-10-19 02:35] LABS: BUN/Creatinine Ratio 14 (6-26); Blood Urea Nitrogen 12 mg/dL (8-23); Calcium 8.6 mg/dL (8.6-10.3); Carbon Dioxide 22 mEq/L (23-29); Chloride 107 mEq/L (98-107); Glucose 115 mg/dL (70-105); Osmolality,Calculated 281 (280-300); Potassium 3.4 mEq/L (3.5-5.1); Sodium 135 mEq/L (136-145); eGFR For African Americans > 60 (> 60); eGFR For Non-African Americans > 60 (> 60)
[2019-10-19] MEDS: Acetaminophen 325 MG TABLET PO PRN ×3 (02:46→21:47)
[2019-10-19] MEDS ORDERED: Aminoglycoside Consult 1 EACH MC ONE (07:35)
[2019-10-19] MEDS: Nicotine 14 MG PATCH.TD24 TD SCH (09:24)
[2019-10-19] MEDS: Lactobacillus 1 EACH CAP.SPRINK PO SCH (14:09)
[2019-10-19] MEDS: Penicillin G Potassium 2,000,000 UNIT in 0.9 % Sodium Chloride 100 ML IVPB SCH ×2 (17:11→21:38)
[2019-10-19] MEDS: Clindamycin 600 MG/50 ML 600 MG/50 ML IV.SOLN IVPB SCH (17:11)
[2019-10-20] MEDS: Clindamycin 600 MG/50 ML 600 MG/50 ML IV.SOLN IVPB SCH ×2 (00:48→08:07)
[2019-10-20] MEDS: Penicillin G Potassium 2,000,000 UNIT in 0.9 % Sodium Chloride 100 ML IVPB SCH ×3 (00:48→08:06)
[2019-10-20] MEDS: *HR* Heparin 5,000 UNIT/ML VIAL SQ SCH ×2 (05:11→13:06)
[2019-10-20 06:54] LABS: Hematocrit 30.2 % (37.5-50.1); Hemoglobin 9.9 g/dL (12.9-16.9); Mean Corpuscular HGB Conc 32.8 g/dL (31.6-35.5); Mean Corpuscular Volume 94.7 fL (83.0-100.0); Mean Platelet Volume 9.9 fL (9.4-12.4); Platelet Count 202 K/mcL (140-400); Red Blood Count 3.19 M/mcL (4.19-5.50); Red Cell Distribution Width 15.3 % (11.5-14.5); White Blood Count 3.5 K/mcL (4.3-11.1)
[2019-10-20 07:16] LABS: BUN/Creatinine Ratio 15 (6-26); Blood Urea Nitrogen 11 mg/dL (8-23); Calcium 8.7 mg/dL (8.6-10.3); Carbon Dioxide 22 mEq/L (23-29); Chloride 106 mEq/L (98-107); Glucose 119 mg/dL (70-105); Osmolality,Calculated 281 (280-300); Potassium 3.2 mEq/L (3.5-5.1); Sodium 135 mEq/L (136-145); eGFR For African Americans > 60 (> 60); eGFR For Non-African Americans > 60 (> 60)
[2019-10-20] MEDS: Lactobacillus 1 EACH CAP.SPRINK PO SCH (08:07)
[2019-10-20] MEDS: Nicotine 14 MG PATCH.TD24 TD SCH (08:07)
[2019-10-20] MEDS ORDERED: cefTRIAXone 2,000 MG in Water for inj. (sterile) 20 ML IVP SCH (12:00)
[2019-10-20] MEDS ORDERED: metroNIDAZOLE 500 MG TABLET PO SCH (12:00)
[2019-10-20 14:23] VITALS: BP 156/73
== END 2019-10-20 15:56 | disposition home health service (06) | DRG 314 ==
LOC: EMEROOARM 08:20 → 3ANU 08:20 → SUATTDRO 09:41 → 3ANU 10:18
PROVIDERS: ADMIT Family Medicine; ATTEND Family Medicine

== ENCOUNTER 2020-01-28 12:38 | Inpatient (IN) ==
[2020-01-28] MEDS ORDERED: 0.9 % Sodium Chloride 500 ML ONE ×2 (14:21→16:20)
[2020-01-28] MEDS ORDERED: Ondansetron 4 MG/2 ML VIAL IVP PRN (14:24)
[2020-01-28] MEDS ORDERED: Naloxone 0.4 MG/ML INJ IVP PRN (14:24)
[2020-01-28] MEDS ORDERED: *HR* LORazepam 2 MG/ML VIAL IVP PRN (15:31)
[2020-01-28] MEDS ORDERED: Acetaminophen 325 MG TABLET PO PRN (15:46)
[2020-01-28] MEDS: Nicotine 21 MG PATCH.TD24 TD SCH (16:13)
[2020-01-28] MEDS ORDERED: SODIUM CHLORIDE/NAHCO3/KCL/PEG 4,000 ML SOLN.RECON PO ONE (17:00)
[2020-01-28 22:25] LABS: Immature Reticulocyte % 23.3 % (11.0-38.0); Retculocyte # 0.08 M/mcL (0.05-0.10); Reticulocyte % 2.2 % (1.6-2.8)
[2020-01-28 22:45] LABS: % Iron Saturation 11 % (20-55); Bilirubin,Direct 0.3 mg/dL (0.0-0.2); Bilirubin,Total 1.3 mg/dL (0.3-1.0); Iron 47 mcg/dL (65-175); Lactate Dehydrogenase 137 Units/L (140-271); Transferrin 303 mg/dL (203-362)
[2020-01-28 23:08] LABS: Folate 11.1 ng/mL (3.0-16.0)
[2020-01-28 23:22] LABS: Ferritin < 8 ng/mL (20-250)
[2020-01-29 05:03] LABS: Basophils % 1.2 %; Hemoglobin 7.2 g/dL (12.9-16.9); Immature Granulocytes % 0.2 % (0-4); Lymphocytes % 17.3 %; Monocytes % 11.5 %; Platelet Count 212 K/mcL (140-400)
[2020-01-29 05:05] LABS: Basophils # 0.1 K/mcL (0.0-0.2); Eosinophils # 0.1 K/mcL (0.0-0.6); Eosinophils % 2.3 %; Hematocrit 24.4 % (37.5-50.1); Mean Corpuscular HGB Conc 29.5 g/dL (31.6-35.5); Mean Corpuscular Hemoglobin 23.2 pg (28.0-33.3); Mean Corpuscular Volume 78.7 fL (83.0-100.0); Monocytes # 0.5 K/mcL (0.0-1.3); Neutrophils # 2.9 K/mcL (1.6-8.9); Red Cell Distribution Width 16.9 % (11.5-14.5); Segmented Neutrophils % 67.5 %; White Blood Count 4.3 K/mcL (4.3-11.1)
[2020-01-29 05:06] LABS: Lymphocytes # 0.7 K/mcL (0.6-4.6)
[2020-01-29 05:22] LABS: BUN/Creatinine Ratio 13 (6-26); Blood Urea Nitrogen 7 mg/dL (8-23); Calcium 8.2 mg/dL (8.6-10.3); Carbon Dioxide 21 mEq/L (23-29); Chloride 107 mEq/L (98-107); Glucose 93 mg/dL (70-105); Osmolality,Calculated 276 (280-300); Potassium 3.2 mEq/L (3.5-5.1); Sodium 134 mEq/L (136-145); eGFR For African Americans > 60 (> 60); eGFR For Non-African Americans > 60 (> 60)
[2020-01-29] MEDS ORDERED: Lidocaine -MPF 2% 2 ML VIAL ONE (09:21)
[2020-01-29] MEDS ORDERED: *HR* Succinylcholine 200 MG/10 ML VIAL IVP ONE (09:24)
[2020-01-29] MEDS: Nicotine 21 MG PATCH.TD24 TD SCH (10:38)
[2020-01-29] MEDS: Thiamine (B-1) 100 MG TABLET PO SCH (10:38)
[2020-01-29] MEDS: Folic Acid 1 MG TABLET PO SCH (10:38)
[2020-01-29] MEDS ORDERED: Isovue-370 500 ML BOTTLE IVP ONE (12:51)
[2020-01-29] MEDS ORDERED: Iron Sucrose Complex 200 MG in 0.9 % Sodium Chloride 100 ML IVPB ONE (15:00)
[2020-01-29] MEDS ORDERED: Cyanocobalamin (B-12) 1,000 MCG/ML VIAL SQ ONE (15:42)
[2020-01-29] MEDS ORDERED: Naloxone 0.4 MG/ML INJ IVP PRN (16:23)
[2020-01-29] MEDS ORDERED: *HR* HYDROcodone/Acet 5/325 mg TABLET PO PRN (16:23)
[2020-01-29] MEDS ORDERED: Gadolinium Contrast Agent (WT Based) IV PRN (16:35)
[2020-01-29 17:13] LABS: Carcinoembryonic Antigen 14.4 ng/mL (Less than 5.0)
[2020-01-29] MEDS ORDERED: *HR* LORazepam 1 MG TABLET PO PRN (17:35)
[2020-01-30 06:53] LABS: Basophils % 0.8 %; Hemoglobin 6.9 g/dL (12.9-16.9)
[2020-01-30 06:55] LABS: Eosinophils # 0.1 K/mcL (0.0-0.6); Eosinophils % 2.2 %; Hematocrit 23.8 % (37.5-50.1); Lymphocytes # 0.8 K/mcL (0.6-4.6); Lymphocytes % 20.9 %; Mean Corpuscular Hemoglobin 23.3 pg (28.0-33.3); Mean Corpuscular Volume 80.4 fL (83.0-100.0); Mean Platelet Volume 10.3 fL (9.4-12.4); Monocytes # 0.5 K/mcL (0.0-1.3); Monocytes % 13.6 %; Neutrophils # 2.3 K/mcL (1.6-8.9); Platelet Count 204 K/mcL (140-400); Red Blood Count 2.96 M/mcL (4.19-5.50); Red Cell Distribution Width 17.3 % (11.5-14.5); Segmented Neutrophils % 62.5 %; White Blood Count 3.7 K/mcL (4.3-11.1)
[2020-01-30] MEDS ORDERED: 0.9 % Sodium Chloride 250 ML IVC SCH ×2 (07:15→18:05)
[2020-01-30 07:16] LABS: Anisocytosis 1+ (Not Present); BUN/Creatinine Ratio 17 (6-26); Blood Urea Nitrogen 11 mg/dL (8-23); Calcium 8.4 mg/dL (8.6-10.3); Carbon Dioxide 22 mEq/L (23-29); Chloride 108 mEq/L (98-107); Glucose 88 mg/dL (70-105); Hypochromasia Present (Not Present); Osmolality,Calculated 279 (280-300); Platelet Estimate Normal (Normal); Potassium 3.5 mEq/L (3.5-5.1); Sodium 135 mEq/L (136-145); eGFR For African Americans > 60 (> 60); eGFR For Non-African Americans > 60 (> 60)
[2020-01-30] MEDS: Thiamine (B-1) 100 MG TABLET PO SCH (08:33)
[2020-01-30] MEDS: Folic Acid 1 MG TABLET PO SCH (08:33)
[2020-01-30] MEDS: Nicotine 21 MG PATCH.TD24 TD SCH (08:34)
[2020-01-30] MEDS ORDERED: Ondansetron 4 MG/2 ML VIAL ONE (11:58)
[2020-01-30] MEDS ORDERED: Dexamethasone 4 MG/ML VIAL ONE (11:58)
[2020-01-30] MEDS ORDERED: Lidocaine -MPF 2% 2 ML VIAL ONE (11:58)
[2020-01-30] MEDS ORDERED: *HR* Rocuronium Bromide 50 MG/5 ML VIAL ONE ×2 (11:58→14:57)
[2020-01-30] MEDS ORDERED: *HR* FentaNYL (PF) 100 MCG/2 ML VIAL ONE ×2 (11:59→13:26)
[2020-01-30] MEDS ORDERED: *HR* Propofol 200 MG/20 ML VIAL IVP ONE (11:59)
[2020-01-30] MEDS ORDERED: *HR* Midazolam HCl 2 MG/2 ML VIAL ONE (11:59)
[2020-01-30] MEDS ORDERED: Lidocaine HCL 4 ML Topical Solution (Laryng-O-Jet Kit Sterile Pak) TP ONE (11:59)
[2020-01-30] MEDS ORDERED: Albuterol 2.5 MG/3 ML NEBULIZER ONE (12:19)
[2020-01-30] MEDS ORDERED: *HR* Labetalol 20 MG/4 ML SYRINGE IVP PRN (12:26)
[2020-01-30] MEDS ORDERED: Ondansetron 4 MG/2 ML VIAL IVP ONE (12:26)
[2020-01-30] MEDS ORDERED: *HR* Promethazine 25 MG/ML VIAL IVP PRN (12:26)
[2020-01-30] MEDS ORDERED: *HR* HYDROmorphone PF 0.5 MG/0.5 ML SYRINGE IVP PRN (12:26)
[2020-01-30] MEDS ORDERED: Famotidine 20 MG/2 ML VIAL ONE (12:28)
[2020-01-30] MEDS ORDERED: Acetaminophen IV 1,000 MG/100 ML INFUS..BTL ONE (12:28)
[2020-01-30] MEDS ORDERED: Cyanocobalamin (B-12) 1,000 MCG/ML VIAL SQ SCH (12:45)
[2020-01-30] MEDS ORDERED: *HR* Succinylcholine 200 MG/10 ML VIAL IVP ONE (12:52)
[2020-01-30] MEDS ORDERED: *HR* HYDROMORPHONE 2 MG/ML VIAL ONE (14:43)
[2020-01-30] MEDS ORDERED: *HR* LORazepam 1 MG TABLET PO PRN (18:05)
[2020-01-30] MEDS ORDERED: Naloxone 0.4 MG/ML INJ IVP PRN (18:05)
[2020-01-30] MEDS ORDERED: *HR* HYDROcodone/Acet 5/325 mg TABLET PO PRN (18:05)
[2020-01-30] MEDS ORDERED: Ondansetron 4 MG/2 ML VIAL IVP PRN (18:05)
[2020-01-30] MEDS ORDERED: Gadolinium Contrast Agent (WT Based) IV PRN (18:05)
[2020-01-30] MEDS ORDERED: *HR* LORazepam 2 MG/ML VIAL IVP PRN (18:05)
[2020-01-30] MEDS ORDERED: Acetaminophen 325 MG TABLET PO PRN (18:05)
[2020-01-30] MEDS: Acetaminophen IV 1,000 MG/100 ML INFUS..BTL IVPB SCH (18:51)
[2020-01-30] MEDS: Morphine PCA 30 MG/ 30 ML 30 ML PCA.VIAL IVC PRN (18:53)
[2020-01-30] MEDS: Ketorolac 15 MG/ML VIAL IVP SCH (19:14)
[2020-01-31] MEDS: Ketorolac 15 MG/ML VIAL IVP SCH ×4 (00:35→17:55)
[2020-01-31] MEDS: Acetaminophen IV 1,000 MG/100 ML INFUS..BTL IVPB SCH ×4 (00:35→17:51)
[2020-01-31] MEDS: ceFAZolin 2,000 MG in 0.9 % Sodium Chloride 100 ML IVPB SCH ×3 (00:36→15:31)
[2020-01-31] MEDS: 0.9 % Sodium Chloride 1,000 ML IVC SCH ×4 (00:48→19:53)
[2020-01-31 07:50] LABS: Basophils % 0.1 %; Hematocrit 24.4 % (37.5-50.1); Hemoglobin 7.2 g/dL (12.9-16.9); Immature Granulocytes % 0.4 % (0-4); Lymphocytes # 0.6 K/mcL (0.6-4.6); Lymphocytes % 4.9 %; Mean Corpuscular HGB Conc 29.5 g/dL (31.6-35.5); Mean Corpuscular Hemoglobin 24.2 pg (28.0-33.3); Mean Corpuscular Volume 82.2 fL (83.0-100.0); Mean Platelet Volume 10.7 fL (9.4-12.4); Monocytes % 7.7 %; Neutrophils # 11.3 K/mcL (1.6-8.9); Platelet Count 181 K/mcL (140-400); Red Blood Count 2.97 M/mcL (4.19-5.50); Red Cell Distribution Width 17.2 % (11.5-14.5); Segmented Neutrophils % 86.9 %
[2020-01-31 08:11] LABS: BUN/Creatinine Ratio 14 (6-26); Blood Urea Nitrogen 10 mg/dL (8-23); Calcium 7.9 mg/dL (8.6-10.3); Carbon Dioxide 20 mEq/L (23-29); Chloride 106 mEq/L (98-107); Glucose 128 mg/dL (70-105); Osmolality,Calculated 273 (280-300); Potassium 3.9 mEq/L (3.5-5.1); Sodium 131 mEq/L (136-145); eGFR For African Americans > 60 (> 60); eGFR For Non-African Americans > 60 (> 60)
[2020-01-31] MEDS: Cyanocobalamin (B-12) 1,000 MCG/ML VIAL SQ SCH (08:45)
[2020-01-31] MEDS: Nicotine 21 MG PATCH.TD24 TD SCH (08:46)
[2020-01-31] MEDS: Folic Acid 1 MG TABLET PO SCH (08:46)
[2020-01-31] MEDS: Thiamine (B-1) 100 MG TABLET PO SCH (08:47)
[2020-01-31] MEDS: Fluconazole 400 MG/200 ML 400 MG/200 ML BAG IVPB SCH (17:55)
[2020-01-31] MEDS: Piperacillin/Tazobactam 3.375 GM in 0.9 % Sodium Chloride Mini Bag 100 ML IVPB SCH (17:57)
[2020-01-31] MEDS: Morphine PCA 30 MG/ 30 ML 30 ML PCA.VIAL IVC PRN (21:35)
[2020-02-01] MEDS: Ketorolac 15 MG/ML VIAL IVP SCH ×4 (00:06→18:03)
[2020-02-01] MEDS: Acetaminophen IV 1,000 MG/100 ML INFUS..BTL IVPB SCH ×4 (00:06→18:02)
[2020-02-01] MEDS: Piperacillin/Tazobactam 3.375 GM in 0.9 % Sodium Chloride Mini Bag 100 ML IVPB SCH ×3 (00:10→16:09)
[2020-02-01] MEDS: 0.9 % Sodium Chloride 1,000 ML IVC SCH ×3 (06:32→12:42)
[2020-02-01 08:06] LABS: INR 1.9; Prothrombin Time 21.2 Seconds (9.4-12.1)
[2020-02-01 08:24] LABS: Basophils % 0.4 %
[2020-02-01 08:26] LABS: Eosinophils # 0.1 K/mcL (0.0-0.6); Eosinophils % 0.6 %; Hematocrit 24.4 % (37.5-50.1); Hemoglobin 7.1 g/dL (12.9-16.9); Immature Granulocytes % 0.4 % (0-4); Lymphocytes # 0.6 K/mcL (0.6-4.6); Lymphocytes % 5.3 %; Mean Corpuscular HGB Conc 29.1 g/dL (31.6-35.5); Mean Corpuscular Hemoglobin 24.7 pg (28.0-33.3); Mean Corpuscular Volume 84.7 fL (83.0-100.0); Mean Platelet Volume 10.8 fL (9.4-12.4); Monocytes # 0.9 K/mcL (0.0-1.3); Monocytes % 8.1 %; Neutrophils # 9.3 K/mcL (1.6-8.9); Platelet Count 183 K/mcL (140-400); Red Blood Count 2.88 M/mcL (4.19-5.50); Red Cell Distribution Width 18.6 % (11.5-14.5); Segmented Neutrophils % 85.2 %; White Blood Count 10.9 K/mcL (4.3-11.1)
[2020-02-01 08:45] LABS: BUN/Creatinine Ratio 12 (6-26); Blood Urea Nitrogen 9 mg/dL (8-23); Calcium 7.6 mg/dL (8.6-10.3); Carbon Dioxide 20 mEq/L (23-29); Chloride 109 mEq/L (98-107); Glucose 95 mg/dL (70-105); Osmolality,Calculated 272 (280-300); Potassium 3.4 mEq/L (3.5-5.1); Sodium 132 mEq/L (136-145); eGFR For African Americans > 60 (> 60); eGFR For Non-African Americans > 60 (> 60)
[2020-02-01] MEDS: Fluconazole 400 MG/200 ML 400 MG/200 ML BAG IVPB SCH (08:46)
[2020-02-01] MEDS: Folic Acid 1 MG TABLET PO SCH (08:47)
[2020-02-01] MEDS: Nicotine 21 MG PATCH.TD24 TD SCH (08:48)
[2020-02-01] MEDS: Cyanocobalamin (B-12) 1,000 MCG/ML VIAL SQ SCH (08:48)
[2020-02-01] MEDS: Thiamine (B-1) 100 MG TABLET PO SCH (08:48)
[2020-02-01 08:49] LABS: Anisocytosis 1+ (Not Present); Hypochromasia Present (Not Present); Platelet Estimate Normal (Normal)
[2020-02-01] MEDS ORDERED: Potassium Chloride Elixir 20 MEQ/15 ML UDC PO ONE (12:02)
[2020-02-01] MEDS ORDERED: 0.9 % Sodium Chloride 250 ML ONE (14:42)
[2020-02-01] MEDS: Morphine PCA 30 MG/ 30 ML 30 ML PCA.VIAL IVC PRN (15:53)
[2020-02-02 00:24] LABS: Alpha 2 Globulin (PEP) 0.79 g/dL (0.48-1.05); Beta Globulin (PEP) 1.14 g/dL (0.48-1.10)
[2020-02-02] MEDS: Piperacillin/Tazobactam 3.375 GM in 0.9 % Sodium Chloride Mini Bag 100 ML IVPB SCH ×4 (00:51→23:16)
[2020-02-02] MEDS: Ketorolac 15 MG/ML VIAL IVP SCH ×2 (00:51→06:39)
[2020-02-02] MEDS: Acetaminophen IV 1,000 MG/100 ML INFUS..BTL IVPB SCH ×2 (00:52→06:37)
[2020-02-02 06:19] LABS: Basophils % 0.3 %; Eosinophils # 0.1 K/mcL (0.0-0.6); Eosinophils % 1.2 %; Hematocrit 25.7 % (37.5-50.1); Hemoglobin 7.7 g/dL (12.9-16.9); Immature Granulocytes % 0.5 % (0-4); Lymphocytes # 0.4 K/mcL (0.6-4.6); Lymphocytes % 5.6 %; Mean Corpuscular Hemoglobin 25.9 pg (28.0-33.3); Mean Corpuscular Volume 86.5 fL (83.0-100.0); Mean Platelet Volume 10.9 fL (9.4-12.4); Monocytes # 0.5 K/mcL (0.0-1.3); Monocytes % 7.2 %; Platelet Count 170 K/mcL (140-400); Red Blood Count 2.97 M/mcL (4.19-5.50); Red Cell Distribution Width 20.2 % (11.5-14.5); Segmented Neutrophils % 85.2 %; White Blood Count 6.6 K/mcL (4.3-11.1)
[2020-02-02 06:21] LABS: INR 1.9; Prothrombin Time 22.1 Seconds (9.4-12.1)
[2020-02-02 06:32] LABS: Neutrophils # 5.6 K/mcL (1.6-8.9)
[2020-02-02 06:42] LABS: BUN/Creatinine Ratio 15 (6-26); Blood Urea Nitrogen 12 mg/dL (8-23); Calcium 7.7 mg/dL (8.6-10.3); Carbon Dioxide 18 mEq/L (23-29); Chloride 107 mEq/L (98-107); Glucose 105 mg/dL (70-105); Osmolality,Calculated 274 (280-300); Potassium 3.4 mEq/L (3.5-5.1); Sodium 132 mEq/L (136-145); eGFR For African Americans > 60 (> 60); eGFR For Non-African Americans > 60 (> 60)
[2020-02-02 07:54] LABS: Anisocytosis 1+ (Not Present); Platelet Estimate Normal (Normal); Polychromasia 1+ (Not Present)
[2020-02-02] MEDS ORDERED: Ibuprofen 800 MG TABLET PO PRN (08:37)
[2020-02-02] MEDS: 0.9 % Sodium Chloride 1,000 ML IVC SCH (09:09)
[2020-02-02] MEDS: Nicotine 21 MG PATCH.TD24 TD SCH (09:09)
[2020-02-02] MEDS: Thiamine (B-1) 100 MG TABLET PO SCH (09:19)
[2020-02-02] MEDS: Cyanocobalamin (B-12) 1,000 MCG/ML VIAL SQ SCH (09:20)
[2020-02-02] MEDS: Fluconazole 400 MG/200 ML 400 MG/200 ML BAG IVPB SCH (09:20)
[2020-02-02] MEDS: Folic Acid 1 MG TABLET PO SCH (09:20)
[2020-02-02] MEDS: polyethylene glycoL 3350 17 GM POWD.PACK PO SCH (10:14)
[2020-02-02] MEDS ORDERED: 0.9 % Sodium Chloride 250 ML ONE (10:59)
[2020-02-02 11:00] LABS: IFE Reflexed NOT DONE
[2020-02-02 16:43] LABS: INR 1.9
[2020-02-02] MEDS: *HR* OxyCODONE/APAP 5/325 TABLET PO PRN (19:54)
[2020-02-03] MEDS: *HR* OxyCODONE/APAP 5/325 TABLET PO PRN ×2 (03:09→20:12)
[2020-02-03] MEDS: 0.9 % Sodium Chloride 1,000 ML IVC SCH (05:24)
[2020-02-03 06:33] LABS: Prothrombin Time 22.5 Seconds (9.4-12.1)
[2020-02-03 06:34] LABS: Basophils % 0.1 %; Eosinophils % 0.3 %; Hematocrit 23.6 % (37.5-50.1); Hemoglobin 7.3 g/dL (12.9-16.9); Immature Granulocytes % 0.3 % (0-4); Lymphocytes # 0.4 K/mcL (0.6-4.6); Lymphocytes % 6.2 %; Mean Corpuscular HGB Conc 30.9 g/dL (31.6-35.5); Mean Corpuscular Hemoglobin 26.4 pg (28.0-33.3); Mean Corpuscular Volume 85.5 fL (83.0-100.0); Mean Platelet Volume 10.6 fL (9.4-12.4); Monocytes # 0.7 K/mcL (0.0-1.3); Monocytes % 10.8 %; Neutrophils # 5.6 K/mcL (1.6-8.9); Platelet Count 179 K/mcL (140-400); Red Blood Count 2.76 M/mcL (4.19-5.50); Red Cell Distribution Width 21.5 % (11.5-14.5); Segmented Neutrophils % 82.3 %; White Blood Count 6.8 K/mcL (4.3-11.1)
[2020-02-03 06:48] LABS: BUN/Creatinine Ratio 25 (6-26); Blood Urea Nitrogen 18 mg/dL (8-23); Calcium 7.9 mg/dL (8.6-10.3); Carbon Dioxide 19 mEq/L (23-29); Chloride 107 mEq/L (98-107); Glucose 124 mg/dL (70-105); Osmolality,Calculated 277 (280-300); Potassium 3.2 mEq/L (3.5-5.1); Sodium 132 mEq/L (136-145); eGFR For African Americans > 60 (> 60); eGFR For Non-African Americans > 60 (> 60)
[2020-02-03 07:23] LABS: Anisocytosis 1+ (Not Present); Hypochromasia Present (Not Present); Macrocytosis Present (Not Present); Platelet Estimate Slight Decrease (Normal)
[2020-02-03] MEDS: Piperacillin/Tazobactam 3.375 GM in 0.9 % Sodium Chloride Mini Bag 100 ML IVPB SCH ×2 (09:01→17:16)
[2020-02-03] MEDS: Fluconazole 400 MG/200 ML 400 MG/200 ML BAG IVPB SCH (09:05)
[2020-02-03] MEDS: Cyanocobalamin (B-12) 1,000 MCG/ML VIAL SQ SCH (09:08)
[2020-02-03] MEDS: polyethylene glycoL 3350 17 GM POWD.PACK PO SCH (09:09)
[2020-02-03] MEDS: Nicotine 21 MG PATCH.TD24 TD SCH (09:10)
[2020-02-03] MEDS: Folic Acid 1 MG TABLET PO SCH (09:10)
[2020-02-03] MEDS: Thiamine (B-1) 100 MG TABLET PO SCH (09:17)
[2020-02-03] MEDS ORDERED: Isovue-370 500 ML BOTTLE IVP ONE (09:41)
[2020-02-03 10:01] LABS: Alanine Aminotransferase 9 Units/L (7-52); Albumin 2.4 g/dL (3.5-5.7); Albumin/Globulin Ratio 0.8 (1.1-2.2); Alkaline Phosphatase 48 Units/L (34-104); Aspartate Amino Transferase 15 Units/L (13-39); Bilirubin,Direct 0.7 mg/dL (0.0-0.2); Bilirubin,Indirect 0.8 mg/dL (0.0-1.0); Bilirubin,Total 1.5 mg/dL (0.3-1.0); Globulin 3.1 g/dL (2.4-3.5); Total Protein 5.5 g/dL (6.4-8.9)
[2020-02-03] MEDS: Furosemide 20 MG TABLET PO SCH (17:19)
[2020-02-03] MEDS ORDERED: Furosemide 40 MG/4 ML VIAL IVP ONE (18:15)
[2020-02-04] MEDS: Piperacillin/Tazobactam 3.375 GM in 0.9 % Sodium Chloride Mini Bag 100 ML IVPB SCH ×2 (00:23→08:20)
[2020-02-04 05:31] LABS: Hematocrit 21.8 % (37.5-50.1); Hemoglobin 6.4 g/dL (12.9-16.9); Mean Corpuscular HGB Conc 29.4 g/dL (31.6-35.5); Mean Corpuscular Hemoglobin 24.8 pg (28.0-33.3); Mean Corpuscular Volume 84.5 fL (83.0-100.0); Platelet Count 175 K/mcL (140-400); Red Blood Count 2.58 M/mcL (4.19-5.50); Red Cell Distribution Width 22.3 % (11.5-14.5); White Blood Count 5.8 K/mcL (4.3-11.1)
[2020-02-04 05:33] LABS: INR 1.6; Prothrombin Time 18.6 Seconds (9.4-12.1)
[2020-02-04 06:16] LABS: Alanine Aminotransferase 8 Units/L (7-52); Albumin 2.2 g/dL (3.5-5.7); Albumin/Globulin Ratio 0.7 (1.1-2.2); Alkaline Phosphatase 47 Units/L (34-104); Aspartate Amino Transferase 14 Units/L (13-39); BUN/Creatinine Ratio 27 (6-26); Blood Urea Nitrogen 25 mg/dL (8-23); Carbon Dioxide 18 mEq/L (23-29); Chloride 108 mEq/L (98-107); Globulin 3.1 g/dL (2.4-3.5); Glucose 96 mg/dL (70-105); Magnesium 1.5 mg/dL (1.6-2.6); Osmolality,Calculated 278 (280-300); Potassium 3.7 mEq/L (3.5-5.1); Sodium 132 mEq/L (136-145); Total Protein 5.3 g/dL (6.4-8.9); eGFR For African Americans > 60 (> 60); eGFR For Non-African Americans > 60 (> 60)
[2020-02-04] MEDS: Furosemide 20 MG TABLET PO SCH (08:19)
[2020-02-04] MEDS: Folic Acid 1 MG TABLET PO SCH (08:19)
[2020-02-04] MEDS: Thiamine (B-1) 100 MG TABLET PO SCH (08:19)
[2020-02-04] MEDS: Nicotine 21 MG PATCH.TD24 TD SCH (08:19)
[2020-02-04] MEDS: Fluconazole 400 MG/200 ML 400 MG/200 ML BAG IVPB SCH (08:20)
[2020-02-04] MEDS: polyethylene glycoL 3350 17 GM POWD.PACK PO SCH (08:20)
[2020-02-04] MEDS ORDERED: 0.9 % Sodium Chloride 250 ML IVC SCH (09:30)
[2020-02-04] MEDS: *HR* OxyCODONE/APAP 5/325 TABLET PO PRN (11:27)
[2020-02-04 14:33] VITALS: BP 144/84
[2020-02-04 16:06] LABS: Hematocrit 23.7 % (37.5-50.1); Hemoglobin 7.4 g/dL (12.9-16.9)
== END 2020-02-04 17:17 | disposition home health service (06) | DRG 231 ==
LOC: 3ANU 12:38 → EMEROOARM 12:38 → SUATTDRO 14:24 → 3ANU 15:00
PROVIDERS: ADMIT Internal Medicine; ATTEND Internal Medicine
PROC: ENDOCBX (2020-01-29 08:00)
PROC: ENDOEBX (2020-01-29 08:00)

== ENCOUNTER 2020-02-14 11:38 | Inpatient (IN) ==
[2020-02-14] MEDS ORDERED: 0.9 % Sodium Chloride 1,000 ML IVC ONE (12:13)
[2020-02-14] MEDS ORDERED: Piperacillin/Tazobactam 3.375 GM in 0.9 % Sodium Chloride Mini Bag 100 ML IVPB ONE (12:40)
[2020-02-14 13:05] LABS: INR 1.4
[2020-02-14 13:19] LABS: Magnesium 1.9 mg/dL (1.6-2.6); Phosphorous 3.4 mg/dL (2.7-4.5)
[2020-02-14 13:20] LABS: Alanine Aminotransferase 80 Units/L (7-52); Albumin 2.9 g/dL (3.5-5.7); Albumin/Globulin Ratio 0.6 (1.1-2.2); Alkaline Phosphatase 99 Units/L (34-104); Aspartate Amino Transferase 30 Units/L (13-39); BUN/Creatinine Ratio 13 (6-26); Bilirubin,Total 0.9 mg/dL (0.3-1.0); Blood Urea Nitrogen 13 mg/dL (8-23); Calcium 9.2 mg/dL (8.6-10.3); Carbon Dioxide 21 mEq/L (23-29); Chloride 100 mEq/L (98-107); Globulin 4.7 g/dL (2.4-3.5); Glucose 103 mg/dL (70-105); Osmolality,Calculated 262 (280-300); Sodium 126 mEq/L (136-145); Total Protein 7.6 g/dL (6.4-8.9); eGFR For African Americans > 60 (> 60); eGFR For Non-African Americans > 60 (> 60)
[2020-02-14 13:26] LABS: Basophils # 0.1 K/mcL (0.0-0.2); Basophils % 0.5 %; Eosinophils % 0.3 %; Hematocrit 26.1 % (37.5-50.1); Hemoglobin 7.8 g/dL (12.9-16.9); Immature Granulocytes % 0.8 % (0-4); Lymphocytes # 0.8 K/mcL (0.6-4.6); Lymphocytes % 6.9 %; Mean Corpuscular HGB Conc 29.9 g/dL (31.6-35.5); Mean Corpuscular Hemoglobin 27.4 pg (28.0-33.3); Mean Corpuscular Volume 91.6 fL (83.0-100.0); Mean Platelet Volume 9.4 fL (9.4-12.4); Monocytes # 1.4 K/mcL (0.0-1.3); Monocytes % 11.8 %; Neutrophils # 9.5 K/mcL (1.6-8.9); Platelet Count 421 K/mcL (140-400); Red Blood Count 2.85 M/mcL (4.19-5.50); Red Cell Distribution Width 24.4 % (11.5-14.5); Segmented Neutrophils % 79.7 %; White Blood Count 11.9 K/mcL (4.3-11.1)
[2020-02-14 13:38] LABS: Anisocytosis 2+ (Not Present); Platelet Estimate Normal (Normal)
[2020-02-14] MEDS ORDERED: *HR* FentaNYL (PF) 100 MCG/2 ML VIAL ONE (13:58)
[2020-02-14] MEDS ORDERED: *HR* Propofol 200 MG/20 ML VIAL IVP ONE (13:58)
[2020-02-14] MEDS ORDERED: *HR* Rocuronium Bromide 50 MG/5 ML VIAL ONE ×2 (13:59→16:18)
[2020-02-14] MEDS ORDERED: Ondansetron 4 MG/2 ML VIAL ONE (13:59)
[2020-02-14] MEDS ORDERED: Lidocaine -MPF 2% 2 ML VIAL ONE (13:59)
[2020-02-14] MEDS ORDERED: Dexamethasone 4 MG/ML VIAL ONE (13:59)
[2020-02-14] MEDS ORDERED: Acetaminophen IV 1,000 MG/100 ML INFUS..BTL ONE (14:09)
[2020-02-14] MEDS ORDERED: Famotidine 20 MG/2 ML VIAL ONE (14:10)
[2020-02-14] MEDS ORDERED: Ondansetron 4 MG/2 ML VIAL IVP ONE (14:25)
[2020-02-14] MEDS ORDERED: *HR* Promethazine 25 MG/ML VIAL IVP PRN (14:25)
[2020-02-14] MEDS ORDERED: *HR* PHENYLEPHRINE 1,000 MCG/10 ML SYRINGE IVP ONE (14:56)
[2020-02-14] MEDS ORDERED: *HR* HYDROMORPHONE 2 MG/ML VIAL ONE (15:37)
[2020-02-14] MEDS ORDERED: Neostigmine Methylsulfate 3 MG/3 ML SYRINGE ONE (16:29)
[2020-02-14] MEDS ORDERED: Morphine PCA 30 MG/ 30 ML 30 ML PCA.VIAL IVC PRN (17:39)
[2020-02-14] MEDS ORDERED: Ondansetron ODT 4 MG TAB.RAPDIS SL PRN (17:39)
[2020-02-14] MEDS ORDERED: *HR* Metoprolol 5 MG/5 ML VIAL IVP PRN (17:39)
[2020-02-14 18:19] LABS: Basophils # 0.1 K/mcL (0.0-0.2); Basophils % 0.6 %; Eosinophils % 0.1 %; Hematocrit 32.5 % (37.5-50.1); Hemoglobin 9.8 g/dL (12.9-16.9); Lymphocytes # 0.3 K/mcL (0.6-4.6); Lymphocytes % 2.4 %; Mean Corpuscular HGB Conc 30.2 g/dL (31.6-35.5); Mean Corpuscular Hemoglobin 27.8 pg (28.0-33.3); Mean Corpuscular Volume 92.1 fL (83.0-100.0); Mean Platelet Volume 9.5 fL (9.4-12.4); Monocytes # 0.4 K/mcL (0.0-1.3); Monocytes % 3.4 %; Neutrophils # 11.8 K/mcL (1.6-8.9); Platelet Count 442 K/mcL (140-400); Red Blood Count 3.53 M/mcL (4.19-5.50); Red Cell Distribution Width 21.8 % (11.5-14.5); Segmented Neutrophils % 92.5 %; White Blood Count 12.7 K/mcL (4.3-11.1)
[2020-02-14 18:20] LABS: INR 1.4; Prothrombin Time 16.3 Seconds (9.4-12.1)
[2020-02-14 18:34] LABS: BUN/Creatinine Ratio 12 (6-26); Blood Urea Nitrogen 12 mg/dL (8-23); Calcium 8.2 mg/dL (8.6-10.3); Carbon Dioxide 17 mEq/L (23-29); Chloride 105 mEq/L (98-107); Glucose 123 mg/dL (70-105); Magnesium 1.8 mg/dL (1.6-2.6); Osmolality,Calculated 265 (280-300); Potassium 5.3 mEq/L (3.5-5.1); Sodium 127 mEq/L (136-145); eGFR For African Americans > 60 (> 60); eGFR For Non-African Americans > 60 (> 60)
[2020-02-14] MEDS ORDERED: Sucralfate 1 GM TABLET PO SCH (21:00)
[2020-02-14] MEDS: D5% in Lactated Ringers 1,000 ML IVC SCH (21:03)
[2020-02-15] MEDS: Piperacillin/Tazobactam 3.375 GM in 0.9 % Sodium Chloride Mini Bag 100 ML IVPB SCH ×3 (00:25→17:07)
[2020-02-15 01:55] LABS: Basophils # 0.1 K/mcL (0.0-0.2); Basophils % 0.3 %; Hematocrit 30.1 % (37.5-50.1); Hemoglobin 9.4 g/dL (12.9-16.9); Immature Granulocytes % 0.5 % (0-4); Lymphocytes # 0.4 K/mcL (0.6-4.6); Lymphocytes % 2.9 %; Mean Corpuscular HGB Conc 31.2 g/dL (31.6-35.5); Mean Corpuscular Hemoglobin 28.2 pg (28.0-33.3); Mean Corpuscular Volume 90.4 fL (83.0-100.0); Mean Platelet Volume 9.6 fL (9.4-12.4); Monocytes # 0.6 K/mcL (0.0-1.3); Monocytes % 4.1 %; Neutrophils # 13.9 K/mcL (1.6-8.9); Platelet Count 417 K/mcL (140-400); Red Blood Count 3.33 M/mcL (4.19-5.50); Red Cell Distribution Width 21.7 % (11.5-14.5); Segmented Neutrophils % 92.2 %
[2020-02-15 02:17] LABS: BUN/Creatinine Ratio 15 (6-26); Blood Urea Nitrogen 13 mg/dL (8-23); Calcium 8.4 mg/dL (8.6-10.3); Carbon Dioxide 18 mEq/L (23-29); Chloride 102 mEq/L (98-107); Glucose 152 mg/dL (70-105); Magnesium 1.7 mg/dL (1.6-2.6); Osmolality,Calculated 265 (280-300); Potassium 4.9 mEq/L (3.5-5.1); Sodium 126 mEq/L (136-145); eGFR For African Americans > 60 (> 60); eGFR For Non-African Americans > 60 (> 60)
[2020-02-15] MEDS: D5% in Lactated Ringers 1,000 ML IVC SCH ×3 (05:07→21:28)
[2020-02-15] MEDS: *HR* Enoxaparin 40 MG/0.4 ML SYRINGE SQ SCH (05:09)
[2020-02-15] MEDS: Furosemide 20 MG TABLET PO SCH (08:51)
[2020-02-16] MEDS: Piperacillin/Tazobactam 3.375 GM in 0.9 % Sodium Chloride Mini Bag 100 ML IVPB SCH ×3 (00:22→17:50)
[2020-02-16] MEDS: *HR* Enoxaparin 40 MG/0.4 ML SYRINGE SQ SCH (05:29)
[2020-02-16] MEDS: D5% in Lactated Ringers 1,000 ML IVC SCH ×2 (05:32→13:36)
[2020-02-16] MEDS: Ketorolac 15 MG/ML VIAL IVP SCH ×3 (10:04→17:52)
[2020-02-16] MEDS: Furosemide 20 MG TABLET PO SCH (10:04)
[2020-02-16] MEDS: Acetaminophen IV 1,000 MG/100 ML INFUS..BTL IVPB SCH ×2 (13:38→18:10)
[2020-02-17] MEDS: Ketorolac 15 MG/ML VIAL IVP SCH ×5 (00:04→23:47)
[2020-02-17] MEDS: Piperacillin/Tazobactam 3.375 GM in 0.9 % Sodium Chloride Mini Bag 100 ML IVPB SCH ×4 (00:05→23:48)
[2020-02-17] MEDS: D5% in Lactated Ringers 1,000 ML IVC SCH ×3 (02:53→18:31)
[2020-02-17 04:31] LABS: Hematocrit 27.1 % (37.5-50.1); Hemoglobin 8.6 g/dL (12.9-16.9); Mean Corpuscular HGB Conc 31.7 g/dL (31.6-35.5); Mean Corpuscular Hemoglobin 28.9 pg (28.0-33.3); Mean Corpuscular Volume 90.9 fL (83.0-100.0); Mean Platelet Volume 8.8 fL (9.4-12.4); Platelet Count 317 K/mcL (140-400); Red Blood Count 2.98 M/mcL (4.19-5.50); Red Cell Distribution Width 22.2 % (11.5-14.5); White Blood Count 8.8 K/mcL (4.3-11.1)
[2020-02-17] MEDS: Acetaminophen IV 1,000 MG/100 ML INFUS..BTL IVPB SCH ×5 (06:00→23:47)
[2020-02-17] MEDS: *HR* Enoxaparin 40 MG/0.4 ML SYRINGE SQ SCH (06:02)
[2020-02-17] MEDS: Furosemide 20 MG TABLET PO SCH (07:51)
[2020-02-17] MEDS ORDERED: Morphine Sulfate Oral CONC 10 MG/0.5 ML ORAL.SYG SL PRN (09:02)
[2020-02-18 01:30] LABS: Hematocrit 27.8 % (37.5-50.1); Hemoglobin 8.6 g/dL (12.9-16.9); Mean Corpuscular HGB Conc 30.9 g/dL (31.6-35.5); Mean Corpuscular Hemoglobin 27.9 pg (28.0-33.3); Mean Corpuscular Volume 90.3 fL (83.0-100.0); Platelet Count 309 K/mcL (140-400); Red Blood Count 3.08 M/mcL (4.19-5.50); Red Cell Distribution Width 21.2 % (11.5-14.5); White Blood Count 6.8 K/mcL (4.3-11.1)
[2020-02-18] MEDS: D5% in Lactated Ringers 1,000 ML IVC SCH ×3 (02:16→16:06)
[2020-02-18] MEDS: *HR* Enoxaparin 40 MG/0.4 ML SYRINGE SQ SCH (05:38)
[2020-02-18] MEDS: Acetaminophen IV 1,000 MG/100 ML INFUS..BTL IVPB SCH ×3 (05:39→17:48)
[2020-02-18] MEDS: Ketorolac 15 MG/ML VIAL IVP SCH (05:39)
[2020-02-18] MEDS: Piperacillin/Tazobactam 3.375 GM in 0.9 % Sodium Chloride Mini Bag 100 ML IVPB SCH ×2 (08:30→16:06)
[2020-02-18] MEDS: Furosemide 20 MG TABLET PO SCH (08:57)
[2020-02-19] MEDS: Piperacillin/Tazobactam 3.375 GM in 0.9 % Sodium Chloride Mini Bag 100 ML IVPB SCH ×3 (00:50→15:13)
[2020-02-19] MEDS: Acetaminophen IV 1,000 MG/100 ML INFUS..BTL IVPB SCH ×2 (00:50→05:11)
[2020-02-19] MEDS: D5% in Lactated Ringers 1,000 ML IVC SCH ×2 (05:10→17:25)
[2020-02-19] MEDS: *HR* Enoxaparin 40 MG/0.4 ML SYRINGE SQ SCH (05:11)
[2020-02-19 05:21] LABS: Hematocrit 27.5 % (37.5-50.1); Hemoglobin 8.5 g/dL (12.9-16.9); Mean Corpuscular HGB Conc 30.9 g/dL (31.6-35.5); Mean Corpuscular Hemoglobin 28.6 pg (28.0-33.3); Mean Corpuscular Volume 92.6 fL (83.0-100.0); Mean Platelet Volume 9.3 fL (9.4-12.4); Platelet Count 293 K/mcL (140-400); Red Blood Count 2.97 M/mcL (4.19-5.50); Red Cell Distribution Width 20.9 % (11.5-14.5); White Blood Count 6.4 K/mcL (4.3-11.1)
[2020-02-19 07:46] LABS: BUN/Creatinine Ratio 13 (6-26); Blood Urea Nitrogen 10 mg/dL (8-23); Carbon Dioxide 23 mEq/L (23-29); Chloride 104 mEq/L (98-107); Glucose 84 mg/dL (70-105); Osmolality,Calculated 270 (280-300); Potassium 3.7 mEq/L (3.5-5.1); Sodium 131 mEq/L (136-145); eGFR For African Americans > 60 (> 60); eGFR For Non-African Americans > 60 (> 60)
[2020-02-19] MEDS: Furosemide 20 MG TABLET PO SCH (08:14)
[2020-02-19] MEDS: *HR* OxyCODONE/APAP 5/325 TABLET PO PRN (21:30)
[2020-02-20] MEDS: Piperacillin/Tazobactam 3.375 GM in 0.9 % Sodium Chloride Mini Bag 100 ML IVPB SCH ×4 (00:21→23:26)
[2020-02-20] MEDS: *HR* Enoxaparin 40 MG/0.4 ML SYRINGE SQ SCH (06:23)
[2020-02-20] MEDS: Furosemide 20 MG TABLET PO SCH (09:23)
[2020-02-20] MEDS: D5% in Lactated Ringers 1,000 ML IVC SCH (09:23)
[2020-02-20] MEDS: *HR* OxyCODONE/APAP 5/325 TABLET PO PRN ×2 (09:31→15:49)
[2020-02-21] MEDS: *HR* Enoxaparin 40 MG/0.4 ML SYRINGE SQ SCH (07:42)
[2020-02-21] MEDS: Piperacillin/Tazobactam 3.375 GM in 0.9 % Sodium Chloride Mini Bag 100 ML IVPB SCH ×2 (07:55→15:52)
[2020-02-21] MEDS: Furosemide 20 MG TABLET PO SCH (07:59)
[2020-02-21] MEDS: *HR* OxyCODONE/APAP 5/325 TABLET PO PRN ×3 (08:03→21:03)
[2020-02-22] MEDS: Piperacillin/Tazobactam 3.375 GM in 0.9 % Sodium Chloride Mini Bag 100 ML IVPB SCH ×4 (00:27→23:50)
[2020-02-22] MEDS: *HR* OxyCODONE/APAP 5/325 TABLET PO PRN ×3 (04:14→21:04)
[2020-02-22] MEDS: *HR* Enoxaparin 40 MG/0.4 ML SYRINGE SQ SCH (05:39)
[2020-02-22] MEDS: Furosemide 20 MG TABLET PO SCH (09:13)
[2020-02-22] MEDS: D5% in Lactated Ringers 1,000 ML IVC SCH (13:37)
[2020-02-23] MEDS: *HR* OxyCODONE/APAP 5/325 TABLET PO PRN (05:36)
[2020-02-23] MEDS: *HR* Enoxaparin 40 MG/0.4 ML SYRINGE SQ SCH (05:36)
[2020-02-23 06:41] VITALS: BP 119/71
[2020-02-23] MEDS: Piperacillin/Tazobactam 3.375 GM in 0.9 % Sodium Chloride Mini Bag 100 ML IVPB SCH (09:12)
[2020-02-23] MEDS: Furosemide 20 MG TABLET PO SCH (09:12)
== END 2020-02-23 13:17 | disposition home health service (06) | DRG 227 ==
LOC: 3ANU 11:38 → EMEROOARM 11:38 → 3ANU 14:30
PROVIDERS: ADMIT Surgery; ATTEND Surgery

== ENCOUNTER 2021-01-20 17:10 | Inpatient (IN) ==
[2021-01-20 18:28] LABS: Basophils % 0.5 %; Eosinophils # 0.1 K/mcL (0.0-0.6); Eosinophils % 0.8 %; Hematocrit 28.1 % (37.5-50.1); Hemoglobin 8.7 g/dL (12.9-16.9); Immature Granulocytes % 0.3 % (0-4); Lymphocytes # 0.4 K/mcL (0.6-4.6); Mean Corpuscular Hemoglobin 29.9 pg (28.0-33.3); Mean Corpuscular Volume 96.6 fL (83.0-100.0); Mean Platelet Volume 9.2 fL (9.4-12.4); Monocytes % 13.7 %; Neutrophils # 5.8 K/mcL (1.6-8.9); Platelet Count 245 K/mcL (140-400); Red Blood Count 2.91 M/mcL (4.19-5.50); Red Cell Distribution Width 18.9 % (11.5-14.5); Segmented Neutrophils % 78.7 %; White Blood Count 7.3 K/mcL (4.3-11.1)
[2021-01-20 18:42] LABS: Alanine Aminotransferase 14 Units/L (7-52); Albumin 2.3 g/dL (3.5-5.7); Albumin/Globulin Ratio 0.4 (1.1-2.2); Alkaline Phosphatase 197 Units/L (34-104); Amylase 24 Units/L (29-103); Aspartate Amino Transferase 36 Units/L (13-39); BUN/Creatinine Ratio 15 (6-26); Bilirubin,Direct 0.7 mg/dL (0.0-0.2); Bilirubin,Indirect 0.9 mg/dL (0.0-1.0); Bilirubin,Total 1.6 mg/dL (0.3-1.0); Blood Urea Nitrogen 14 mg/dL (8-23); Calcium 8.8 mg/dL (8.6-10.3); Carbon Dioxide 21 mEq/L (23-29); Chloride 97 mEq/L (98-107); Globulin 5.6 g/dL (2.4-3.5); Glucose 107 mg/dL (70-105); Lipase 19 Units/L (11-82); Osmolality,Calculated 261 (280-300); Potassium 3.8 mEq/L (3.5-5.1); Sodium 125 mEq/L (136-145); Total Protein 7.9 g/dL (6.4-8.9); eGFR For African Americans > 60 (> 60); eGFR For Non-African Americans > 60 (> 60)
[2021-01-20] MEDS ORDERED: Vancomycin 1,500 MG/265 ML IV.SOLN IVPB ONE (21:08)
[2021-01-20] MEDS ORDERED: Naloxone 0.4 MG/ML INJ IVP PRN (21:32)
[2021-01-20] MEDS ORDERED: Ondansetron 4 MG/2 ML VIAL IVP PRN (21:32)
[2021-01-20] MEDS ORDERED: Furosemide 20 MG/2 ML VIAL IVP SCH (22:00)
[2021-01-21] MEDS: *HR* OxyCODONE Immed Rel 5 MG TABLET PO PRN ×2 (00:48→16:33)
[2021-01-21] MEDS: *HR* Heparin 5,000 UNIT/ML VIAL SQ SCH ×3 (00:48→13:04)
[2021-01-21 03:46] LABS: INR 1.6; Prothrombin Time 17.8 Seconds (9.4-12.1)
[2021-01-21 03:48] LABS: Activated Partial Thrombo Time 32.8 Seconds (26.0-36.0)
[2021-01-21 03:54] LABS: Basophils # 0.1 K/mcL (0.0-0.2); Basophils % 0.8 %; Eosinophils # 0.1 K/mcL (0.0-0.6); Eosinophils % 1.1 %; Hematocrit 27.3 % (37.5-50.1); Hemoglobin 8.6 g/dL (12.9-16.9); Immature Granulocytes % 0.4 % (0-4); Lymphocytes # 0.5 K/mcL (0.6-4.6); Lymphocytes % 6.7 %; Mean Corpuscular HGB Conc 31.5 g/dL (31.6-35.5); Mean Corpuscular Hemoglobin 29.4 pg (28.0-33.3); Mean Corpuscular Volume 93.2 fL (83.0-100.0); Mean Platelet Volume 9.3 fL (9.4-12.4); Monocytes # 1.1 K/mcL (0.0-1.3); Monocytes % 13.7 %; Neutrophils # 6.1 K/mcL (1.6-8.9); Platelet Count 257 K/mcL (140-400); Red Blood Count 2.93 M/mcL (4.19-5.50); Red Cell Distribution Width 19.2 % (11.5-14.5); Segmented Neutrophils % 77.3 %; White Blood Count 7.9 K/mcL (4.3-11.1)
[2021-01-21 04:03] LABS: BUN/Creatinine Ratio 17 (6-26); Blood Urea Nitrogen 14 mg/dL (8-23); C-Reactive Protein 51 mg/L (Less than 10); Calcium 8.8 mg/dL (8.6-10.3); Carbon Dioxide 21 mEq/L (23-29); Chloride 98 mEq/L (98-107); Glucose 97 mg/dL (70-105); Magnesium 1.9 mg/dL (1.6-2.6); Osmolality,Calculated 262 (280-300); Phosphorous 3.1 mg/dL (2.7-4.5); Potassium 3.6 mEq/L (3.5-5.1); Sodium 126 mEq/L (136-145); eGFR For African Americans > 60 (> 60); eGFR For Non-African Americans > 60 (> 60)
[2021-01-21] MEDS ORDERED: cefTRIAXone 1,000 MG in Water for inj. (sterile) 10 ML IVP SCH (09:00)
[2021-01-21] MEDS: Piperacillin/Tazobactam 3.375 GM in 0.9 % Sodium Chloride Mini Bag 100 ML IVPB SCH ×2 (09:24→16:29)
[2021-01-21] MEDS: Sucralfate 1 GM TABLET PO SCH ×3 (09:25→21:45)
[2021-01-21] MEDS: Lactulose Oral Soln 20 GM/30 ML UDC PO SCH ×3 (09:25→21:45)
[2021-01-21] MEDS: Furosemide 20 MG/2 ML VIAL IVP SCH ×2 (09:25→21:45)
[2021-01-21 10:51] LABS: Bilirubin,Urine Negative (Negative); Blood,Urine Small (Negative); Clarity,Urine Clear (Clear); Color,Urine Yellow (Yellow); Glucose,Urine (UA) Normal (Normal); Hyaline Casts,Urine Few per lpf (None Seen); Ketones,Urine Negative (Negative); Leukocyte Esterase,Urine Negative (Negative); Mucus,Urine Few per lpf (None-Few); Nitrite,Urine Negative (Negative); Protein,Urine Negative (Neg-Trace); RBC,Urine 0-3 per hpf (0-3); Specific Gravity,Urine 1.014 (1.010-1.025); Urobilinogen,Urine Normal (Normal); WBC,Urine 0-3 per hpf (0-3)
[2021-01-21] MEDS: Metoprolol XL (24 HR) Succ 25 MG TAB.ER.24H PO SCH (13:03)
[2021-01-21] MEDS: Albumin 25% 25gram/100mL 25 GM/100 ML IV.SOLN IVC SCH ×2 (13:04→14:42)
[2021-01-21 14:21] LABS: RBC,Peritoneal Fluid 3000 RBC/mcL
[2021-01-21 14:58] LABS: Appearance of Peritoneal Fl CLOUDY (Clear)
[2021-01-21 16:24] LABS: Hematocrit 24.3 % (37.5-50.1); Hemoglobin 7.7 g/dL (12.9-16.9); Mean Corpuscular HGB Conc 31.7 g/dL (31.6-35.5); Mean Corpuscular Hemoglobin 29.6 pg (28.0-33.3); Mean Corpuscular Volume 93.5 fL (83.0-100.0); Mean Platelet Volume 8.7 fL (9.4-12.4); Platelet Count 199 K/mcL (140-400); Red Cell Distribution Width 18.9 % (11.5-14.5); White Blood Count 7.4 K/mcL (4.3-11.1)
[2021-01-21] MEDS ORDERED: *HR* LORazepam 0.5 MG TABLET PO PRN (16:57)
[2021-01-21] MEDS ORDERED: haloperidoL 1 MG TABLET PO PRN (18:01)
[2021-01-21] MEDS ORDERED: Hyoscyamine SL 0.125 MG TAB.SUBL PO PRN (18:02)
[2021-01-22] MEDS: Piperacillin/Tazobactam 3.375 GM in 0.9 % Sodium Chloride Mini Bag 100 ML IVPB SCH ×3 (01:26→16:18)
[2021-01-22] MEDS: *HR* Heparin 5,000 UNIT/ML VIAL SQ SCH ×4 (05:18→23:52)
[2021-01-22 06:17] LABS: Basophils % 0.5 %; Eosinophils # 0.1 K/mcL (0.0-0.6); Eosinophils % 1.1 %; Hematocrit 24.5 % (37.5-50.1); Hemoglobin 7.8 g/dL (12.9-16.9); Immature Granulocytes % 0.5 % (0-4); Lymphocytes # 0.5 K/mcL (0.6-4.6); Mean Corpuscular HGB Conc 31.8 g/dL (31.6-35.5); Mean Corpuscular Hemoglobin 30.1 pg (28.0-33.3); Mean Corpuscular Volume 94.6 fL (83.0-100.0); Mean Platelet Volume 9.4 fL (9.4-12.4); Monocytes % 14.5 %; Platelet Count 217 K/mcL (140-400); Red Blood Count 2.59 M/mcL (4.19-5.50); Segmented Neutrophils % 75.4 %; White Blood Count 6.6 K/mcL (4.3-11.1)
[2021-01-22 06:42] LABS: % Iron Saturation 11 % (20-55); Alanine Aminotransferase 10 Units/L (7-52); Albumin 2.4 g/dL (3.5-5.7); Albumin/Globulin Ratio 0.6 (1.1-2.2); Alkaline Phosphatase 142 Units/L (34-104); Aspartate Amino Transferase 28 Units/L (13-39); BUN/Creatinine Ratio 13 (6-26); Bilirubin,Direct 0.7 mg/dL (0.0-0.2); Bilirubin,Indirect 0.7 mg/dL (0.0-1.0); Bilirubin,Total 1.4 mg/dL (0.3-1.0); Blood Urea Nitrogen 14 mg/dL (8-23); Calcium 8.4 mg/dL (8.6-10.3); Carbon Dioxide 23 mEq/L (23-29); Chloride 100 mEq/L (98-107); Globulin 4.1 g/dL (2.4-3.5); Glucose 88 mg/dL (70-105); Iron 17 mcg/dL (65-175); Magnesium 1.7 mg/dL (1.6-2.6); Osmolality,Calculated 272 (280-300); Phosphorous 2.9 mg/dL (2.7-4.5); Sodium 131 mEq/L (136-145); Total Protein 6.5 g/dL (6.4-8.9); Transferrin 107 mg/dL (203-362); eGFR For African Americans > 60 (> 60); eGFR For Non-African Americans > 60 (> 60)
[2021-01-22 06:55] LABS: Ferritin 34 ng/mL (20-250)
[2021-01-22 07:01] LABS: Folate 8.8 ng/mL (3.0-16.0)
[2021-01-22] MEDS ORDERED: Potassium Chloride 40 MEQ, Lidocaine 1% 2 ML in 0.9 % Sodium Chloride 500 ML IVPB ONE (07:46)
[2021-01-22] MEDS: Lactulose Oral Soln 20 GM/30 ML UDC PO SCH ×3 (09:58→22:24)
[2021-01-22] MEDS: Furosemide 20 MG/2 ML VIAL IVP SCH ×2 (10:04→22:24)
[2021-01-22] MEDS: Metoprolol XL (24 HR) Succ 25 MG TAB.ER.24H PO SCH (10:05)
[2021-01-22] MEDS: Sucralfate 1 GM TABLET PO SCH ×3 (10:05→22:24)
[2021-01-22] MEDS: Iron Sucrose Complex 250 MG in 0.9 % Sodium Chloride 250 ML IVPB SCH (16:17)
[2021-01-22] MEDS: *HR* OxyCODONE Immed Rel 5 MG TABLET PO PRN (16:17)
[2021-01-23] MEDS: Albumin 25% 25gram/100mL 25 GM/100 ML IV.SOLN IVPB SCH ×3 (00:06→16:25)
[2021-01-23] MEDS: Piperacillin/Tazobactam 3.375 GM in 0.9 % Sodium Chloride Mini Bag 100 ML IVPB SCH ×3 (04:16→18:31)
[2021-01-23 05:07] LABS: Basophils % 0.5 %; Eosinophils # 0.1 K/mcL (0.0-0.6); Eosinophils % 1.6 %; Hematocrit 24.8 % (37.5-50.1); Hemoglobin 7.8 g/dL (12.9-16.9); Immature Granulocytes % 0.3 % (0-4); Lymphocytes # 0.5 K/mcL (0.6-4.6); Lymphocytes % 6.7 %; Mean Corpuscular HGB Conc 31.5 g/dL (31.6-35.5); Mean Corpuscular Hemoglobin 29.1 pg (28.0-33.3); Mean Corpuscular Volume 92.5 fL (83.0-100.0); Mean Platelet Volume 9.3 fL (9.4-12.4); Monocytes % 13.4 %; Neutrophils # 5.8 K/mcL (1.6-8.9); Platelet Count 199 K/mcL (140-400); Red Blood Count 2.68 M/mcL (4.19-5.50); Segmented Neutrophils % 77.5 %; White Blood Count 7.5 K/mcL (4.3-11.1)
[2021-01-23 05:24] LABS: BUN/Creatinine Ratio 10 (6-26); Blood Urea Nitrogen 13 mg/dL (8-23); Calcium 8.2 mg/dL (8.6-10.3); Carbon Dioxide 26 mEq/L (23-29); Chloride 97 mEq/L (98-107); Glucose 107 mg/dL (70-105); Magnesium 1.6 mg/dL (1.6-2.6); Osmolality,Calculated 271 (280-300); Potassium 2.8 mEq/L (3.5-5.1); Sodium 130 mEq/L (136-145); eGFR For African Americans > 60 (> 60); eGFR For Non-African Americans 56 (> 60)
[2021-01-23] MEDS: *HR* Heparin 5,000 UNIT/ML VIAL SQ SCH ×3 (06:23→22:23)
[2021-01-23] MEDS: Furosemide 20 MG/2 ML VIAL IVP SCH (08:38)
[2021-01-23] MEDS: Lactulose Oral Soln 20 GM/30 ML UDC PO SCH ×3 (08:38→22:23)
[2021-01-23] MEDS: Metoprolol XL (24 HR) Succ 25 MG TAB.ER.24H PO SCH (08:39)
[2021-01-23] MEDS: *HR* OxyCODONE Immed Rel 5 MG TABLET PO PRN ×2 (08:39→22:23)
[2021-01-23] MEDS: Sucralfate 1 GM TABLET PO SCH ×3 (08:39→22:28)
[2021-01-23] MEDS: Iron Sucrose Complex 250 MG in 0.9 % Sodium Chloride 250 ML IVPB SCH (10:51)
[2021-01-23] MEDS ORDERED: Furosemide 40 MG/4 ML VIAL IVP SCH (18:30)
[2021-01-24] MEDS: Albumin 25% 25gram/100mL 25 GM/100 ML IV.SOLN IVPB SCH ×2 (01:48→08:53)
[2021-01-24] MEDS: *HR* Heparin 5,000 UNIT/ML VIAL SQ SCH (06:04)
[2021-01-24 06:50] LABS: Basophils % 0.6 %; Eosinophils # 0.1 K/mcL (0.0-0.6); Eosinophils % 1.3 %; Hematocrit 25.6 % (37.5-50.1); Hemoglobin 7.7 g/dL (12.9-16.9); Immature Granulocytes % 0.3 % (0-4); Lymphocytes # 0.6 K/mcL (0.6-4.6); Lymphocytes % 8.4 %; Mean Corpuscular HGB Conc 30.1 g/dL (31.6-35.5); Mean Corpuscular Hemoglobin 28.6 pg (28.0-33.3); Mean Corpuscular Volume 95.2 fL (83.0-100.0); Mean Platelet Volume 9.8 fL (9.4-12.4); Monocytes # 0.9 K/mcL (0.0-1.3); Monocytes % 13.6 %; Neutrophils # 5.2 K/mcL (1.6-8.9); Platelet Count 192 K/mcL (140-400); Red Blood Count 2.69 M/mcL (4.19-5.50); Red Cell Distribution Width 18.7 % (11.5-14.5); Segmented Neutrophils % 75.8 %; White Blood Count 6.9 K/mcL (4.3-11.1)
[2021-01-24] MEDS: Lactulose Oral Soln 20 GM/30 ML UDC PO SCH ×2 (08:53→14:46)
[2021-01-24] MEDS: Sucralfate 1 GM TABLET PO SCH ×2 (08:54→14:46)
[2021-01-24] MEDS: Metoprolol XL (24 HR) Succ 25 MG TAB.ER.24H PO SCH (08:54)
[2021-01-24] MEDS: *HR* OxyCODONE Immed Rel 5 MG TABLET PO PRN (08:57)
[2021-01-24 09:34] LABS: BUN/Creatinine Ratio 11 (6-26); Blood Urea Nitrogen 13 mg/dL (8-23); Calcium 8.2 mg/dL (8.6-10.3); Carbon Dioxide 25 mEq/L (23-29); Chloride 95 mEq/L (98-107); Glucose 95 mg/dL (70-105); Magnesium 1.8 mg/dL (1.6-2.6); Osmolality,Calculated 268 (280-300); Potassium 2.8 mEq/L (3.5-5.1); Sodium 129 mEq/L (136-145); eGFR For African Americans > 60 (> 60); eGFR For Non-African Americans > 60 (> 60)
[2021-01-24 11:15] VITALS: BP 108/54
== END 2021-01-24 17:15 | disposition hospice, home (50) | DRG 240 ==
LOC: EMEROOARM 17:10 → 3ANU 17:10 → SUATTDRO 22:03 → 3ANU 22:57
PROVIDERS: ADMIT Internal Medicine; ATTEND Pharmacist